=== PATIENT | female | born 1940 | race Caucasian/White ===

== ENCOUNTER 2017-03-13 16:35 | Inpatient (IN) | payer OTHER ==
[~2017-03-13] VITALS: Ht 304.8 cm; Wt 54.5 kg
[~2017-03-13 16:35] MED LIST: AMLO5TAB4 PO; ASPI-664 PO; ATEN100T PO; HYDR25TA6 PO; METF850T PO; [UNRECOGNIZED DRUG - REMARK]
[2017-03-13] MEDS ORDERED: ASPIRIN 81 MG TAB PO STA (16:39)
[2017-03-13] MEDS ORDERED: SOD CHLORIDE 0.9% 500 ML IV STA (16:39)
[2017-03-13 16:57] LABS: BASOPHILS % 0.5 % (0.0-2.0); EOSINOPHILS # 0.1 10^3/ul (0.0-0.5); EOSINOPHILS % 1.1 % (0.0-7.0); HEMATOCRIT 40.3 % (37.0-47.0); HEMOGLOBIN 13.9 g/dl (12.0-16.0); LYMPHOCYTES # 2.7 10^3/ul (0.8-2.9); LYMPHOCYTES % 33.2 % (15.0-51.0); MEAN CORPUSCULAR HEMOGLOBIN 32.4 pg (29.0-33.0); MEAN CORPUSCULAR HGB CONC 34.5 g/dl (32.0-37.0); MEAN CORPUSCULAR VOLUME 93.9 fl (82.0-101.0); MEAN PLATELET VOLUME 12.2 fl (7.4-10.4); MONOCYTE # 0.7 10^3/ul (0.3-0.9); MONOCYTES % 8.2 % (0.0-11.0); NEUTROPHILS % 56.6 % (39.0-77.0); PLATELET COUNT 166 10^3/UL (140-415); RED BLOOD COUNT 4.29 10^6/ul (4.20-5.40); RED CELL DISTRIBUTION WIDTH 13.4 % (11.5-14.5)
[2017-03-13] MEDS ORDERED: DILTIAZEM-D5W 125MG/125ML DRIP 125 ML IV SCH (17:00)
[2017-03-13] MEDS ORDERED: DILTIAZEM 25 MG INJ IV ONE (17:00)
--- NOTE | 2017-03-13 17:09 | ERA ---
ER Documentation Chief Complaint Date/Time DATE: 03/13/17 TIME: 17:04 Chief Complaint BROUGHT IN VIA EMS DUE TO CHEST PAIN FOR 3 DAYS HPI This 77-year-old female presents with 2-3 days of chest pain which got suddenly worse today. Chest pain is left-sided and substernal described as a pressure- like sensation with no radiation. She also had shortness of breath and dizziness. She was given 3 nitros in the ambulance in her chest pain resolved completely. ROS All systems reviewed and are negative except as per history of present illness. Medications Home Meds Reported Medications Insulin Lispro (Humalog Kwikpen U-100) 100 Unit/1 Ml Insuln.pen, 0 SQ SLIDING SCALE 03/13/17 Insulin Glargine* (Lantus*) 100 Unit/Ml Soln, 0 SC QHS, #1 VIAL TAKE 10-15 UNITS QHS 03/13/17 Alendronate Sodium* (Alendronate Sodium*) 35 Mg Tablet, 35 MG PO Q7D, #4 TAB 03/13/17 Omeprazole* (Omeprazole*) 20 Mg Capsule.dr, 20 MG PO DAILY, #30 CAP 03/13/17 Aspirin* (Aspirin* EC) 81 Mg Tablet.dr, 81 MG PO DAILY, TAB 12/14/14 Amlodipine Besylate* (Norvasc*) 5 Mg Tablet, 5 MG PO DAILY, TAB 12/14/14 Hydrochlorothiazide (Hydrochlorothiazide) 25 Mg Tablet, 25 MG PO DAILY, TAB 12/14/14 Atenolol* (Atenolol*) 100 Mg Tablet, 100 MG PO HS, TAB 12/14/14 Discontinued Reported Medications Metformin Hcl* (Metformin Hcl*) 850 Mg Tablet, 850 MG PO DAILY, TAB 12/14/14 [Insulin Unknown Dose] No Conflict Check 09/27/14 Allergies Allergies: Coded Allergies: No Known Allergy (Unverified , 03/13/17) PMhx/Soc History of Surgery: Yes (FOOT SX/EYE SX) Anesthesia Reaction: No Hx Neurological Disorder: No Hx Respiratory Disorders: No Hx Cardiac Disorders: Yes (HTN) Hx Psychiatric Problems: No Hx Miscellaneous Medical Probl: No (DM) Hx Alcohol Use: No Hx Substance Use: No Hx Tobacco Use: No Smoking Status: Never smoker Physical Exam Vitals Vital Signs Date Time Temp Pulse Resp B/P Pulse Ox O2 Delivery O2 Flow Rate FiO2 03/13/17 17:12 98.2 86 18 123/75 96 03/13/17 16:46 98.2 132 18 127/81 96 03/13/17 16:46 Nasal Cannula 2 Physical Exam Const: [] Mild distress Head: Atraumatic Eyes: Normal Conjunctiva ENT: Normal External Ears, Nose and Mouth. Neck: Full range of motion..~ No meningismus. Resp: Mlid decreased bibasilar breath sounds, mild tachypnea Cardio: Regular tachycardia, no murmurs Abd: Soft, non tender, non distended. Normal bowel sounds Skin: No petechiae or rashes Back: No midline or flank tenderness Ext: No cyanosis, trace pedal edema Neur: Awake and alert and oriented x 3, no focal deficits. Psych: Anxious Result Diagram: 03/13/17 1645 03/13/17 1645 Results 24 hrs Laboratory Tests Test 03/13/17 16:45 White Blood Count 8.010^3/ul Red Blood Count 4.2910^6/ul Hemoglobin 13.9g/dl Hematocrit 40.3% Mean Corpuscular Volume 93.9fl Mean Corpuscular Hemoglobin 32.4pg Mean Corpuscular Hemoglobin Concent 34.5g/dl Red Cell Distribution Width 13.4% Platelet Count 04851^3/UL Mean Platelet Volume 12.2fl Neutrophils % 56.6% Lymphocytes % 33.2% Monocytes % 8.2% Eosinophils % 1.1% Basophils % 0.5% Nucleated Red Blood Cells % 0.0/100WBC Neutrophils # (Manual) 4.510^3/ul Lymphocytes # 2.710^3/ul Monocytes # 0.710^3/ul Eosinophils # 0.110^3/ul Basophils # 0.010^3/ul Nucleated Red Blood Cells # 0.010^3/ul Prothrombin Time 13.6Sec Prothrombin Time Ratio 1.1 INR International Normalized Ratio 1.04 Activated Partial Thromboplast Time 25.3Sec Sodium Level 141mmol/L Potassium Level 4.1mmol/L Chloride Level 101mmol/L Carbon Dioxide Level 24mmol/L Anion Gap 20 Blood Urea Nitrogen 25mg/dl Creatinine 0.84mg/dl Glucose Level 142mg/dl Calcium Level 9.6mg/dl Troponin I < 0.012ng/ml B-Type Natriuretic Peptide 2420PG/ML Current Medications Medications (Trade) Dose Ordered Sig/Hai Route PRN Reason Start Time Stop Time Status Last Admin Dose Admin Sodium Chloride (NS) 500 ml @ 500 mls/hr Q1H STAT IV 03/13/17 16:39 03/13/17 17:38 DC 03/13/17 17:10 Aspirin (Aspirin) 162 mg ONCE STAT PO 03/13/17 16:39 03/13/17 16:43 DC 03/13/17 17:00 Diltiazem HCl 20 mg 20 mg ONCE ONCE IV 03/13/17 17:00 03/13/17 17:01 DC 03/13/17 17:10 Diltiazem HCl (Cardizem-D5W 125 Mg/125 ml Drip) 125 ml @ 5 mls/hr TITRATE IV 03/13/17 17:00 03/13/17 17:27 Procedures/MDM Chest pain with a flutter with RVR, very high heart rate. Chest pain was resolved with nitroglycerin. Patient was given a Cardizem bolus as well as Cardizem drip to control her dangerously high heart rate. We did feel better with rate control. To be need. She was admitted to the telemetry is a no longer believe she needs intensive care treatment. No. Panel Dr. Rodriguez is admitting. court recording monitor interpretation: Rapid a flutter followed by controlled a flutter. Chest x-ray interpretation: Engorgement of pulmonary vasculature without pulmonary edema, no infiltrates, no pneumothorax, no fractures Critical care time 31 minutes: This includes management of a flutter with concomitant chest pain, careful fluid administration, all visits patient's bedside to reassess status, treatment of unstable vital signs, chart reviewed, discussion with admitting doctor and patient. This does not include any billable procedures EKG interpretation: A flutter with 2-1 conduction rate of 133, left axis deviation, no ST or T-wave changes concerning for acute ischemia. Departure Diagnosis: Primary Impression: Chest pain Additional Impressions: Atrial flutter Tachycardia Condition: Serious GUADALUPEHERVE Mar 13, 2017 17:09
[2017-03-13 17:18] LABS: ANION GAP 20 (8-16); BLOOD UREA NITROGEN 25 mg/dl (7-20); CALCIUM 9.6 mg/dl (8.4-10.2); CARBON DIOXIDE 24 mmol/L (21-31); CHLORIDE 101 mmol/L (97-110); CREATININE 0.84 mg/dl (0.44-1.00); GLUCOSE 142 mg/dl (70-220); POTASSIUM 4.1 mmol/L (3.5-5.1); SODIUM 141 mmol/L (135-144)
[2017-03-13] MEDS ORDERED: ALEN35TA23 PO (17:29)
[2017-03-13] MEDS ORDERED: OMEP20CA16 PO (17:29)
[2017-03-13 17:30] LABS: INR 1.04; PARTIAL THROMBOPLASTIN TIME 25.3 Sec (25.0-35.0); PROTIME 13.6 Sec (12.2-14.2); PT RATIO 1.1
[2017-03-13] MEDS ORDERED: LANT3I SC (17:30)
[2017-03-13 17:31] LABS: B-TYPE NATRIURETIC PEPTIDE 2420 PG/ML (0-450)
[2017-03-13] MEDS ORDERED: INSU100I12 SQ (17:32)
[2017-03-13 17:38] LABS: TROPONIN-I < 0.012 ng/ml (0.00-0.12)
--- NOTE | 2017-03-13 17:38 | RADRPT ---
PROCEDURE: XR Chest. CLINICAL INDICATION: Chest Pain. TECHNIQUE: Single frontal view of the chest was obtained. COMPARISON: None. FINDINGS: The cardiomediastinal silhouette is mildly enlarged. Pulmonary vasculature is within normal limits. There is moderate aortic calcification.. No signs of pleural fluid or pneumothorax are seen. There is narrowing of the right humeral acromion distance, likely reflecting right rotator cuff tear. IMPRESSION: Mild cardiomegaly. Moderate aortic calcification. No visualized consolidation or edema. RPTAT: DD .Aníbal Sinclair MD, MD Date Time Electronically viewed and signed by .Aníbal Sinclair MD, MD on 03/13/2017 17:38 .T/
[2017-03-13] MEDS ORDERED: ONDANSETRON 4 MG INJ IV PRN (19:00)
[2017-03-13] MEDS ORDERED: ACETAMINOPHEN 325 MG TAB PO PRN (19:00)
[2017-03-13 21:45] VITALS: TEMP 97.9
[2017-03-13 22:29] LABS: ADD UMIC YES; UR ASCORBIC ACID NEGATIVE (NEGATIVE); UR BACTERIA FEW /HPF (NONE SEEN); UR BILIRUBIN (Dip) NEGATIVE (NEGATIVE); UR BLOOD (Dip) NEGATIVE (NEGATIVE); UR CLARITY CLEAR (CLEAR); UR COLOR STRAW (YELLOW); UR GLUCOSE (Dip) NEGATIVE (NEGATIVE); UR KETONES (Dip) NEGATIVE (NEGATIVE); UR LEUKOCYTE ESTERASE (Dip) 2+ Leu/ul (NEGATIVE); UR NITRITE (Dip) NEGATIVE (NEGATIVE); UR RBC 2 /HPF (0-5); UR SPECIFIC GRAVITY (Dip) 1.008 (1.003-1.030); UR SQUAMOUS EPITHELIAL CELL FEW /HPF (FEW); UR TOTAL PROTEIN (Dip) NEGATIVE (NEGATIVE); UR UROBILINOGEN (Dip) NEGATIVE (NEGATIVE)
[2017-03-13 22:53] VITALS: PULSE 66
[2017-03-13 23:00] VITALS: BP 120/80; PULSE 65; RESP 18
[2017-03-13 23:46] LABS: CREATINE KINASE 31 IU/L (23-200)
[2017-03-14] VITALS (15 sets, daily range): BP systolic 104–139; BP diastolic 58–92; PULSE 60–130; RESP 16–18; Ht 304.8 cm; Wt 54.5 kg
[2017-03-14] LABS: CK-MB 0.91 ng/ml (0.0-2.4)
[2017-03-14 00:02] LABS: TROPONIN-I < 0.012 ng/ml (0.00-0.12)
[2017-03-14] MEDS ORDERED: NACL 0.9% 3 ML SYG IV SCH (04:00)
[2017-03-14] MEDS ORDERED: ALBUTEROL/IPRATROPIUM (NEB) 3 ML AMP HHN PRN (04:00)
[2017-03-14] MEDS ORDERED: morphine 2 MG INJ IV PRN (04:00)
[2017-03-14] MEDS ORDERED: ONDANSETRON 4 MG INJ IV PRN (04:00)
[2017-03-14] MEDS ORDERED: NITROGLYCERIN (SL) 0.4 MG TAB SL PRN (04:00)
[2017-03-14] MEDS: PANTOPRAZOLE (EC) 40 MG TAB PO SCH (06:02)
--- NOTE | 2017-03-14 06:03 | HP ---
Date/Time of Note Date/Time of Note DATE: 03/14/17 TIME: 05:55 Assessment/Plan VTE Prophylaxis VTE Prophylaxis Intervention: heparin Lines/Catheters [facility] Saline Lock Urinary Cath still in place: No Assessment/Plan Assessment/Plan 1. A-flutter with RVR -Currently rate controlled after initiation of Cardizem drip -Continue home medication including her beta-abi and aspirin -Trend troponin -Check TSH and 2D echo in the morning -Cardiology consult 2. Chest pain, rule out ACS -Supplemental oxygen, aspirin, beta-abi, with as needed nitro morphine -Continue management of a-flutter -Trend troponin -2D echo and cardiology consult 3. Insulin-dependent diabetes -Check A1c -Adjust insulin as needed 4. Hypertension -Continue home BP meds with adjustment as needed HPI/ROS Admit Date/Time Admit Date/Time Mar 13, 2017 at 18:45 Hx of Present Illness This is a 77-year-old female with a history of hypertension, insulin-dependent diabetes and A-fib/flutter who presented to the emergency department complaining of chest pain 1 day. Pain is left-sided, pressure-like with radiation to her left arm with no associated shortness of breath, nausea/ vomiting or diaphoresis. Pain resolved with nitro given by EMS. When she presented to the ER she was found to be in 2-1 a-flutter with a rate of 133 on EKG. she was started on Cardizem drip and her rate has been controlled. First troponin is negative. . PMH/Family/Social Past Medical History Medical History: diabetes, hypertension, other (A flutter/A. fib) Social History Alcohol Use: none Smoking Status: Never smoker Drug Use: none Exam/Review of Systems Vital Signs Vitals Vital Signs Date Time Temp Pulse Resp B/P Pulse Ox O2 Delivery O2 Flow Rate FiO2 03/14/17 04:10 80 03/13/17 23:00 98.3 18 120/80 100 Room Air 03/13/17 16:46 2 Exam Constitutional: alert, oriented, well developed Head: atraumatic, normocephalic Eyes: EOMI, PERRL Respiratory: clear to auscultation, normal air movement Cardiovascular: irregular rhythm Gastrointestinal: non-tender, soft Extremities: normal pulses Labs Result Diagram: 03/13/17 1645 03/13/17 1645 Medications Medications Current Medications Diltiazem HCl (Cardizem-D5W 125 Mg/125 ml Drip) 125 ml @ 5 mls/hr TITRATE IV Last administered on 03/13/17t 17:27; Admin Dose 5 MLS/HR; Start 03/13/17 at 17: 00 Ondansetron HCl (Zofran Inj) 4 mg Q6H PRN IV NAUSEA AND/OR VOMITING; Start 03/14 at 04:00 Nitroglycerin (Nitroglycerin (Sl Tab) 0.4 Mg) 1 tab Q5M PRN SL CHEST PAIN; Start 03/14/17 at 04:00 Acetaminophen (Tylenol Tab) 650 mg Q6H PRN PO PAIN LEVEL 1-3 OR FEVER; Start at 04:00 Morphine Sulfate (morphine) 2 mg Q4H PRN IV PAIN LEVEL 7-10; Start 03/14/17 at 04:00 Enoxaparin Sodium (Lovenox) 40 mg DAILY SC ; Start 03/14/17 at 09:00 Amlodipine Besylate (Norvasc) 5 mg DAILY PO ; Start 03/14/17 at 09:00 Aspirin (Halfprin) 81 mg DAILY PO ; Start 03/14/17 at 09:00 Atenolol (Tenormin) 100 mg HS PO ; Start 03/14/17 at 21:00 Pantoprazole (Protonix Tab) 40 mg DAILY@06 PO ; Start 03/14/17 at 06:00 WESLEY LIMON MD Mar 14, 2017 06:02
[2017-03-14 06:10] LABS: BASOPHILS % 0.6 % (0.0-2.0); EOSINOPHILS # 0.1 10^3/ul (0.0-0.5); EOSINOPHILS % 1.4 % (0.0-7.0); HEMATOCRIT 38.1 % (37.0-47.0); HEMOGLOBIN 12.5 g/dl (12.0-16.0); LYMPHOCYTES # 2.3 10^3/ul (0.8-2.9); LYMPHOCYTES % 37.3 % (15.0-51.0); MEAN CORPUSCULAR HEMOGLOBIN 31.2 pg (29.0-33.0); MEAN CORPUSCULAR HGB CONC 32.8 g/dl (32.0-37.0); MEAN PLATELET VOLUME 12.6 fl (7.4-10.4); MONOCYTE # 0.6 10^3/ul (0.3-0.9); MONOCYTES % 9.4 % (0.0-11.0); PLATELET COUNT 142 10^3/UL (140-415); RED BLOOD COUNT 4.01 10^6/ul (4.20-5.40); RED CELL DISTRIBUTION WIDTH 13.7 % (11.5-14.5); WHITE BLOOD COUNT 6.3 10^3/ul (4.8-10.8)
[2017-03-14 06:56] LABS: CREATINE KINASE 31 IU/L (23-200)
[2017-03-14 06:58] LABS: CK-MB 1.04 ng/ml (0.0-2.4)
[2017-03-14 07:01] LABS: TROPONIN-I < 0.012 ng/ml (0.00-0.12)
[2017-03-14 07:13] LABS: ALBUMIN 3.5 g/dl (3.3-4.9); ALBUMIN/GLOBULIN RATIO 1.12; BILIRUBIN,INDIRECT 0.4 mg/dl (0-1.1); BILIRUBIN,TOTAL 0.4 mg/dl (0.2-1.3); CALCIUM 8.9 mg/dl (8.4-10.2); CHOL/HDL RATIO 4.4 RATIO; CREATININE 0.73 mg/dl (0.44-1.00); MAGNESIUM 1.7 mg/dl (1.7-2.5); POTASSIUM 4.2 mmol/L (3.5-5.1); TOTAL PROTEIN 6.6 g/dl (6.1-8.1)
[2017-03-14 08:08] LABS: THYROID STIMULATING HORMONE 0.556 MIU/L (0.465-4.680)
[2017-03-14] MEDS ORDERED: ENOXAPARIN 40 MG/0.4 ML SYG SC SCH (09:00)
[2017-03-14] MEDS ORDERED: GLUCOSE GEL 15 GRAM TUBE PO PRN ×2 (10:30)
[2017-03-14] MEDS ORDERED: GLUCOSE GEL 15 GRAM TUBE BUCCAL PRN (10:30)
[2017-03-14] MEDS ORDERED: GLUCAGON 1 MG INJ IM PRN (10:30)
[2017-03-14] MEDS ORDERED: DEXTROSE 50% 50 ML SYRINGE IV PRN ×2 (10:30)
[2017-03-14] MEDS: INSULIN ASPART [NOVOLOG] 3 ML PEN SC SCH ×5 (11:45→21:00)
[2017-03-14] MEDS: ACETAMINOPHEN 325 MG TAB PO PRN (12:58)
[2017-03-14] MEDS: ASPIRIN (EC) 81 MG TAB PO SCH (13:01)
[2017-03-14] MEDS: AMLODIPINE 5 MG TAB PO SCH (13:01)
[2017-03-14] MEDS: INSULIN GLARGINE [LANtus] 3 ML PEN SC SCH (13:08)
[2017-03-14] MEDS ORDERED: METOPROLOL 5 MG INJ IV PRN (18:30)
--- NOTE | 2017-03-14 19:23 | RADRPT ---
Echocardiogram Report Patient Name: MILES WISEMAN Gender: Female Date: 1940 Study Date: 14-Mar-2017 Room Service Attendant: Naveen Bahena RUST Location: [facility] Ref. Physician: WESLEY LIMON Quality: Adequate Procedures: Transthoracic echocardiogram with complete 2D, M-Mode, and doppler examination. Indications: Atrial Fibrillation. 2D/M Mode Doppler Measurement Value Normal Ranges Measurement Value Normal Ranges LVIDd 2D 4.2 3.5 - 5.6 cm AV Peak Vinayak 0.9 m/sec LVIDs 2D 3.5 2.1 - 4.1 cm AV Peak PG 3.0 mmHg FS 2D 16.1 % LVOT Peak Vinayak 0.5 m/sec LVPWd 2D 1.3 0.6 - 1.1 cm LVOT Peak PG 1.0 mmHg IVSd 2D 1.3 0.6 - 1.1 cm MV E Peak Vinayak 1.2 m/sec IVS/LVPW 2D 1.0 MR Peak PG 84.0 mmHg AoR Diam 2D 2.5 2.0 - 3.7 cm MR Peak Vinayak 4.6 m/sec LA/Ao 2D 1 0 - 1 TR Peak Vinayak 2.8 m/sec EDV 2D 75.7 cm3 TR Peak PG 31.0 mmHg ESV 2D 44.7 cm3 RVSP 34.0 mmHg LA Dimen 2D 3.7 2.3 - 4.0 cm Findings Left Ventricle: Normal left ventricular cavity size. Moderate concentric left ventricular hypertrophy. Mild global left ventricular systolic dysfunction. Ejection fraction is visually estimated at 40 %. Tissue Doppler/Mitral Doppler indices are indeterminate in this study due to the presence of atrial fibrillation. Right Ventricle: Normal right ventricular systolic function. Mild enlargement of right ventricle. Left Atrium: The left atrium is normal in size. Right Atrium: The right atrium is normal in size. Mitral Valve: Mitral valve leaflets appear mildly thickened. Mild mitral annular calcification. Moderate mitral valve regurgitation. Aortic Valve: Trace aortic valve regurgitation. Tricuspid Valve: Normal appearance of the tricuspid valve. Estimated peak PA systolic pressure 34 mmHg. There is mild to moderate tricuspid regurgitation. Pulmonic Valve: Pulmonic valve not well visualized. There is trace pulmonic regurgitation. Pericardium: Normal pericardium with no significant pericardial effusion. Aorta: Normal aortic root. IVC: Normal size and normal respiratory collapse consistent with normal right atrial pressure. Conclusions 1.Normal left ventricular cavity size. Moderate concentric left ventricular hypertrophy. Mild global left ventricular systolic dysfunction. Ejection fraction is visually estimated at 40 %. Tissue Doppler/Mitral Doppler indices are indeterminate in this study due to the presence of atrial fibrillation. 2.Normal right ventricular systolic function. Mild enlargement of right ventricle. 3.Mitral valve leaflets appear mildly thickened. Mild mitral annular calcification. Moderate mitral valve regurgitation. 4.Trace aortic valve regurgitation. 5.Normal appearance of the tricuspid valve. Estimated peak PA systolic pressure 34 mmHg. There is mild to moderate tricuspid regurgitation. 6.Pulmonic valve not well visualized. There is trace pulmonic regurgitation. Electronically Signed By: Ellis Fontenot 14-Mar-2017 19:22:35 -0700 Patient Name: MILES WISEMAN Study Date: 14-Mar-2017 [id number]
[2017-03-14] MEDS: DIGOXIN 500 MCG INJ IV SCH ×2 (19:32→23:20)
[2017-03-14] MEDS ORDERED: ATENOLOL 100 MG TAB PO SCH (21:00)
[2017-03-14] MEDS: ATENOLOL 50 MG TAB PO SCH (21:50)
[2017-03-14] MEDS: ENOXAPARIN 60 MG/0.6 ML SYG SC SCH (23:25)
[2017-03-15] VITALS (10 sets, daily range): BP systolic 124–143; BP diastolic 62–91; PULSE 81–129; RESP 19–20
--- NOTE | 2017-03-15 00:12 | CONS ---
DATE OF ADMISSION: 03/13/2017 DATE OF CONSULTATION: 03/14/2017 REASON FOR CONSULTATION: Atrial flutter with rapid ventricular response, as well as chest pain, assess acute coronary syndrome. REQUESTING PHYSICIAN: Dr. Aguilar from the hospitalist service. HISTORY OF PRESENT ILLNESS: Ms. Melendez is a 77-year-old female with a history of hypertension, dyslipidemia, diabetes mellitus, who presented with complaints of palpitations and associated substernal chest pain described as a pressure-like sensation, occurring at rest, with some radiation to left arm and mild shortness of breath, with onset on the day of admission. Initially upon arrival, temperature 98.2, blood pressure 127/81, pulse of 132, respirations 18, O2 96 percent. Patient's labs with a white count 8.0, hemoglobin 13.9, platelet count of 166. Sodium 141, potassium 4.1, creatinine 0.8, BUN 25. Troponin negative. BNP of 2420. INR 1.0. UA positive. The patient underwent a chest x-ray revealing mild cardiomegaly, moderate aortic calcification. The patient's electrocardiogram revealed atrial flutter at a rate of 133, left axis deviation, nonspecific ST-T wave abnormalities diffusely. The patient subsequently has been initiated on a diltiazem drip and has been admitted to the floor. On diltiazem drip, patient currently has good rate control in the 80s and stable blood pressure. The patient states chest pain has improved. PAST MEDICAL HISTORY: As above in HPI. MEDICATION: Currently in the hospital: 1. Atenolol 100 mg at bedtime. 2. Norvasc 5 mg daily. 3. Aspirin 81 mg daily. 4. Lovenox 4 mg subcu daily. 5. Insulin sliding scale. ALLERGIES: NO KNOWN DRUG ALLERGIES. SOCIAL HISTORY: No tobacco, EtOH or illicit drug use. FAMILY HISTORY: No history of sudden cardiac or early CAD. REVIEW OF SYSTEMS: As above in HPI. CONSTITUTIONAL: No fevers or chills. RESPIRATORY: Shortness of breath. CARDIOVASCULAR: Positive for chest pain, atrial flutter. GASTROINTESTINAL: No vomiting. GENITOURINARY: No hematuria. MUSCULOSKELETAL: Degenerative joint disease. PSYCHIATRIC: No documented psych history. NEUROLOGIC: No documented CVA. PHYSICAL EXAMINATION: VITAL SIGNS: Temperature of 97.9, blood pressure most recently 104/58, pulse , respiratory rate 16, satting 96 percent. GENERAL: The patient is alert, awake, no acute distress. NECK: JVP approximately 8 cm of water. CHEST: Fair air movement throughout with mildly decreased breath sounds at the bases bilaterally. HEART: Regular irregular, 1/6 systolic murmur. Nondisplaced PMI. ABDOMEN: Positive bowel sounds. Soft. EXTREMITIES: No pitting edema. 1+ pulses bilateral posterior tibial. LABORATORY: As above in HPI with most recently from today: Troponin negative times a total of 3. White blood cell count 6.3, hemoglobin 12.5, platelet count 142. Sodium of 141, potassium 4.2, creatinine 0.7, BUN 20, glucose of 258. LDL 96, HDL 34. TSH 0.56, within normal limits. IMAGING STUDIES: As above in HPI. No further imaging studies were reviewed at this time. ELECTROCARDIOGRAM: As above in HPI. No further electrocardiograms were reviewed at this time. IMPRESSION: 1. Atrial flutter with rapid ventricular response, currently improved on diltiazem drip. 2. Chest pain. Assess for acute coronary syndrome. 3. Dyslipidemia with low HDL. 4. Hypertension with currently borderline hypotension. 5. Diabetes mellitus with uncontrolled blood sugars. 6. Urinary tract infection. RECOMMENDATIONS: 1. At this time, would maintain patient on telemetry monitoring to follow rhythm and rates closely. 2. Would wean the patient's diltiazem drip as tolerated after giving atenolol and schedule this evening, but given patient's borderline blood pressure, we will take atenolol and split it into half dose in the morning and half dose in the evening and we will give additional digoxin load to improve overall heart rate acutely. 3. Once the patient has been weaned off diltiazem by giving digoxin and beta abi with an attempt to keep the heart rate 110 or less, would then use intravenous push p.r.n. beta abi as necessary to maintain heart rate control while further titration of oral medications are given. 4. Would initiate patient on systemic anticoagulation for prevention of thromboembolic events in the setting of ablation, elevated CHADS score placing her at increased risk for thromboembolic complications, atrial fibrillation, atrial flutter and benefit from systemic anticoagulation if possible. 5. Complete the rule out myocardial infarction to ensure the patient's chest pain was not due to acute coronary syndrome, such as acute myocardial infarction provoked in the setting of rapid atrial flutter. 6. We will follow patient's 2D echo for assessment of ejection fraction, wall motion, any major abnormalities. 7. Would consider stress testing to further assess for the possibility of a significant obstructive artery disease or thereafter ischemic lesions leading any to the patient's chest pain. Thank you for allowing me to take part in the care of this patient. I will continue to follow her very closely with you with further recommendations to be made as patient progresses through her inpatient hospital course. Dictated By: Ellis Fontenot MD /marielena/ijeoma /Document#: [id number] ; Dr. Campo
[2017-03-15] MEDS: ACCU-CHEK XX SCH (01:03)
[2017-03-15] MEDS ORDERED: ACCU-CHEK XX SCH (02:00)
[2017-03-15] MEDS: PANTOPRAZOLE (EC) 40 MG TAB PO SCH (06:23)
[2017-03-15 07:46] LABS: BASOPHILS % 0.4 % (0.0-2.0); EOSINOPHILS % 0.3 % (0.0-7.0); HEMATOCRIT 41.9 % (37.0-47.0); LYMPHOCYTES # 1.3 10^3/ul (0.8-2.9); LYMPHOCYTES % 13.8 % (15.0-51.0); MEAN CORPUSCULAR HEMOGLOBIN 31.7 pg (29.0-33.0); MEAN CORPUSCULAR HGB CONC 33.4 g/dl (32.0-37.0); MEAN CORPUSCULAR VOLUME 94.8 fl (82.0-101.0); MEAN PLATELET VOLUME 12.6 fl (7.4-10.4); MONOCYTE # 0.5 10^3/ul (0.3-0.9); MONOCYTES % 5.5 % (0.0-11.0); NEUTROPHILS % 79.5 % (39.0-77.0); PLATELET COUNT 161 10^3/UL (140-415); RED BLOOD COUNT 4.42 10^6/ul (4.20-5.40); RED CELL DISTRIBUTION WIDTH 13.6 % (11.5-14.5); WHITE BLOOD COUNT 9.1 10^3/ul (4.8-10.8)
[2017-03-15] MEDS: INSULIN ASPART [NOVOLOG] 3 ML PEN SC SCH ×7 (08:00→21:00)
[2017-03-15 08:14] LABS: CALCIUM 9.3 mg/dl (8.4-10.2); CREATININE 0.74 mg/dl (0.44-1.00); MAGNESIUM 1.9 mg/dl (1.7-2.5); PHOSPHORUS 3.8 mg/dl (2.5-4.9); POTASSIUM 4.2 mmol/L (3.5-5.1)
--- NOTE | 2017-03-15 09:40 | RADRPT ---
Vent Rate: 130 bpm RR Interval: 0 msec DC Interval: 198 msec QRS Duration: 108 msec QT Interval: 254 msec QTC Interval: 373 msec P-R-T Arnold: 58 - 34 - 173 degrees Sinus tachycardia Possible Left atrial enlargement ST amp; T wave abnormality, consider inferior ischemia Abnormal ECG Electronically Signed By: Maverick Rincon [id number]
[2017-03-15] MEDS: ASPIRIN (EC) 81 MG TAB PO SCH (09:48)
[2017-03-15] MEDS: ATENOLOL 50 MG TAB PO SCH ×2 (09:48→20:54)
[2017-03-15] MEDS: AMLODIPINE 5 MG TAB PO SCH (09:48)
[2017-03-15] MEDS ORDERED: REGADENOSON 0.4 MG/5 ML SYG ONE (10:04)
[2017-03-15] MEDS: ENOXAPARIN 60 MG/0.6 ML SYG SC SCH ×2 (12:45→20:58)
--- NOTE | 2017-03-15 15:08 | PN ---
Date/Time of Note Date/Time of Note DATE: 03/15/17 TIME: 15:04 Assessment/Plan VTE Prophylaxis VTE Prophylaxis Intervention: LMWH Lines/Catheters IV [facility]from [facility] Saline Lock Urinary Cath still in place: No Assessment/Plan Chief Complaint/Hosp Course 1. A-flutter with RVR -Currently rate controlled with atenolol -TSH normal and 2D echo shows EF of 40% -Cardiology consult appreciated -Continue Lovenox 2. Chest pain, rule out ACS -Supplemental oxygen, aspirin, beta-abi, with as needed nitro morphine -Continue management of a-flutter -Trops are negative 3 -Nuclear stress test today 3. Insulin-dependent diabetes -A1c 9.8 -Adjust insulin as needed 4. Hypertension -Continue home BP meds with adjustment as needed Prophylaxis: Lovenox Problems: Subjective 24 Hr Interval Summary Constitutional: no complaints Exam/Review of Systems Vital Signs Vitals Vital Signs Date Time Temp Pulse Resp B/P Pulse Ox O2 Delivery O2 Flow Rate FiO2 03/15/17 08:16 105 03/15/17 07:33 98.5 19 124/62 98 03/14/17 18:53 Room Air 03/13/17 16:46 2 Exam Constitutional: alert Respiratory: clear to auscultation Cardiovascular: irregular rhythm Gastrointestinal: soft, No distended Musculoskeletal: nl extremities to inspection Results Result Diagram: 03/15/17 0724 03/15/17 0724 Results 24 hrs Laboratory Tests Test 03/14/17 17:43 03/14/17 21:41 03/15/17 07:24 03/15/17 08:06 Bedside Glucose 258 H 134 248 H White Blood Count 9.1 # Red Blood Count 4.42 Hemoglobin 14.0 Hematocrit 41.9 Mean Corpuscular Volume 94.8 Mean Corpuscular Hemoglobin 31.7 Mean Corpuscular Hemoglobin Concent 33.4 Red Cell Distribution Width 13.6 Platelet Count 161 Mean Platelet Volume 12.6 H Neutrophils % 79.5 H Lymphocytes % 13.8 L Monocytes % 5.5 Eosinophils % 0.3 Basophils % 0.4 Nucleated Red Blood Cells % 0.0 Neutrophils # (Manual) 7.2 Lymphocytes # 1.3 Monocytes # 0.5 Eosinophils # 0.0 Basophils # 0.0 Nucleated Red Blood Cells # 0.0 Sodium Level 138 Potassium Level 4.2 Chloride Level 102 Carbon Dioxide Level 26 Anion Gap 14 Blood Urea Nitrogen 17 Creatinine 0.74 Glucose Level 283 #H Calcium Level 9.3 Phosphorus Level 3.8 Magnesium Level 1.9 Test 03/15/17 12:25 Bedside Glucose 184 Medications Medications Current Medications Diltiazem HCl (Cardizem-D5W 125 Mg/125 ml Drip) 125 ml @ 5 mls/hr TITRATE IV Last administered on 03/13/17 17:27; Admin Dose 5 MLS/HR; Start 03/13/17 at 17: 00 Ondansetron HCl (Zofran Inj) 4 mg Q6H PRN IV NAUSEA AND/OR VOMITING; Start 03/14 at 04:00 Nitroglycerin (Nitroglycerin (Sl Tab) 0.4 Mg) 1 tab Q5M PRN SL CHEST PAIN; Start 03/14/17 at 04:00 Acetaminophen (Tylenol Tab) 650 mg Q6H PRN PO PAIN LEVEL 1-3 OR FEVER Last administered on 03/14/17 12:58; Admin Dose 650 MG; Start 03/14/17 at 04:00 Morphine Sulfate (morphine) 2 mg Q4H PRN IV PAIN LEVEL 7-10; Start 03/14/17 at 04:00 Amlodipine Besylate (Norvasc) 5 mg DAILY PO Last administered on 03/15/17 09:48 ; Admin Dose 5 MG; Start 03/14/17 at 09:00 Aspirin (Halfprin) 81 mg DAILY PO Last administered on 03/15/17 09:48; Admin Dose 81 MG; Start 03/14/17 at 09:00 Pantoprazole (Protonix Tab) 40 mg DAILY@06 PO Last administered on 03/15/17 06: 23; Admin Dose 40 MG; Start 03/14/17 at 06:00 Diagnostic Test (Pha) (Accu-Chek) 1 ea 02 XX ; Start 03/15/17 at 02:00 Insulin Glargine (Lantus) 11 unit DAILY@08 SC Last administered on 03/14/17 13: 08; Admin Dose 11 UNIT; Start 03/15/17 at 08:00 Miscellaneous Information 1 ea NOTE XX ; Start 03/14/17 at 10:30 Glucose (Glutose) 15 gm Q15M PRN PO DECREASED GLUCOSE; Start 03/14/17 at 10:30 Glucose (Glutose) 22.5 gm Q15M PRN PO DECREASED GLUCOSE; Start 03/14/17 at 10:30 Dextrose (D50w Syringe) 25 ml Q15M PRN IV DECREASED GLUCOSE; Start 03/14/17 at 10:30 Dextrose (D50w Syringe) 50 ml Q15M PRN IV DECREASED GLUCOSE; Start 03/14/17 at 10:30 Glucagon (Glucagen) 1 mg Q15M PRN IM DECREASED GLUCOSE; Start 03/14/17 at 10:30 Glucose (Glutose) 15 gm Q15M PRN BUCCAL DECREASED GLUCOSE; Start 03/14/17 at 10: 30 Atenolol (Tenormin) 50 mg BID PO Last administered on 03/15/17 09:48; Admin Dose 50 MG; Start 03/14/17 at 21:00 Enoxaparin Sodium (Lovenox) 50 mg BID SC Last administered on 03/15/17 12:45; Admin Dose 50 MG; Start 03/14/17 at 23:00 Metoprolol Tartrate (Lopressor) 5 mg Q4H PRN IV HR>110 Hold SBP<100 Last administered on 03/15/17 10:21; Admin Dose 5 MG; Start 03/14/17 at 18:30 MCKENNA RODRIGUES Mar 15, 2017 15:08
--- NOTE | 2017-03-15 16:39 | RADRPT ---
PROCEDURE: Lexiscan myocardial perfusion study CLINICAL INDICATION: 77 -year-old patient complaining of chest pain. TECHNIQUE: Lexiscan 0.4 mg intravenously separate acquisition gated myocardial perfusion SPECT usi ng Tc 99m Myoview 30.0 mCi intravenously at stress and Tc-99m Myoview, 10.0 mCi intravenously at res t was performed using the rest/stress sequence. Poststress Myoview SPECT images were obtained in th e supine position. COMPARISON: No prior studies. FINDINGS: Perfusion images reveal mild nonreversible perfusion abnormality in the inferior wall. Lexiscan post stress gated SPECT images demonstrate mild hypokinesis of the left ventricle. IMPRESSION: 1. No evidence of stress-induced ischemia. 2. Mild hypokinesis of the left ventricle. 3. The left ventricle ejection fraction at stress is 36%. RPTAT: HH .Veronica Navarro MD, Date Time Electronically viewed and signed by .Veronica Navarro MD, on 03/15/2017 16:39 .L/
[2017-03-15] MEDS: ACETAMINOPHEN 325 MG TAB PO PRN (22:54)
[2017-03-16] VITALS (8 sets, daily range): BP systolic 115–140; BP diastolic 65–88; PULSE 66–132; RESP 17–20
[2017-03-16] MEDS: ACCU-CHEK XX SCH (02:00)
[2017-03-16] MEDS: PANTOPRAZOLE (EC) 40 MG TAB PO SCH (06:12)
[2017-03-16 08:03] LABS: CALCIUM 8.9 mg/dl (8.4-10.2); CREATININE 0.81 mg/dl (0.44-1.00); MAGNESIUM 1.8 mg/dl (1.7-2.5); POTASSIUM 4.2 mmol/L (3.5-5.1)
[2017-03-16] MEDS: ASPIRIN (EC) 81 MG TAB PO SCH (08:10)
[2017-03-16] MEDS: ATENOLOL 50 MG TAB PO SCH (08:11)
[2017-03-16] MEDS: AMLODIPINE 5 MG TAB PO SCH (08:11)
[2017-03-16] MEDS: INSULIN ASPART [NOVOLOG] 3 ML PEN SC SCH ×4 (08:12→12:24)
[2017-03-16] MEDS: ENOXAPARIN 60 MG/0.6 ML SYG SC SCH (08:12)
[2017-03-16] MEDS: INSULIN GLARGINE [LANtus] 3 ML PEN SC SCH (08:14)
[2017-03-16] MEDS ORDERED: APIX2.5T PO (14:02)
[2017-03-16] MEDS ORDERED: ATEN50TA PO (14:02)
--- NOTE | 2017-03-16 14:03 | PDOCDIS ---
Discharge Instructions CONDITION Patient Condition: Good HOME CARE INSTRUCTIONS: Special Diet: carb control ACTIVITY: Activity Restrictions: No Restrictions FOLLOW UP/APPOINTMENTS Follow-up Plan F/U WITH YOUR PCP IN 1-2 WEEKS MCKENNA RODRIGUES Mar 16, 2017 14:03
--- NOTE | 2017-03-16 18:21 | DS ---
Date/Time of Note Date/Time of Note DATE: 03/16/17 TIME: 18:16 Discharge Summary Admission/Discharge Info Admit Date/Time Mar 13, 2017 at 18:45 Discharge Date/Time Mar 16, 2017 at 15:11 Discharge Diagnosis 1. A-flutter with RVR-now stable -Currently rate controlled with atenolol, home dose change to 50 twice daily -TSH normal and 2D echo shows EF of 40% -Cardiology consult appreciated -DC with Eliquis 2. Chest pain due to palpitations from a flutter, rule out ACS -Trops are negative 3 -Nuclear stress test negative 3. Insulin-dependent diabetes -A1c 9.8, dietary changes were advised, to follow with PCP 4. Hypertension -Continue home BP meds Patient Condition: Good Hospital Course Patient is a 77-year-old female with a history of hypertension, insulin- dependent diabetes and A-fib/flutter who presented to the emergency department complaining of chest pain 1 day. ACS was ruled out with negative troponins and negative nuclear stress test. Pain was likely secondary to palpitations from a flutter with rapid ventricular response. Patient's home atenolol was changed to 50 twice daily was started on Lovenox. The patient's heart rate was stable and she was chest pain-free on the day of discharge. On the day of discharge patient's vitals, labs and physical exam are stable, she had no further acute complaints and questions were answered. She was instructed on her change of medications to atenolol 50 twice daily and reason for the initiation of Eliquis. . Home Meds Active Scripts Apixaban* (Eliquis*) 2.5 Mg Tablet, 2.5 MG PO BID, #60 TAB 2 Refills Prov:MCKENNA RODRIGUES 03/16/17 Atenolol* (Atenolol*) 50 Mg Tablet, 50 MG PO BID, #60 TAB 1 Refill Prov:MCKENNA RODRIGUES 03/16/17 Reported Medications Insulin Lispro (Humalog Kwikpen U-100) 100 Unit/1 Ml Insuln.pen, 0 SQ SLIDING SCALE 03/13/17 Insulin Glargine* (Lantus*) 100 Unit/Ml Soln, 0 SC QHS, #1 VIAL TAKE 10-15 UNITS QHS 03/13/17 Alendronate Sodium* (Alendronate Sodium*) 35 Mg Tablet, 35 MG PO Q7D, #4 TAB 03/13/17 Omeprazole* (Omeprazole*) 20 Mg Capsule.dr, 20 MG PO DAILY, #30 CAP 03/13/17 Amlodipine Besylate* (Norvasc*) 5 Mg Tablet, 5 MG PO DAILY, TAB 12/14/14 Hydrochlorothiazide (Hydrochlorothiazide) 25 Mg Tablet, 25 MG PO DAILY, TAB 12/14/14 Discontinued Reported Medications Aspirin* (Aspirin* EC) 81 Mg Tablet.dr, 81 MG PO DAILY, TAB 12/14/14 Atenolol* (Atenolol*) 100 Mg Tablet, 100 MG PO HS, TAB 12/14/14 Metformin Hcl* (Metformin Hcl*) 850 Mg Tablet, 850 MG PO DAILY, TAB 12/14/14 [Insulin Unknown Dose] No Conflict Check 09/27/14 Follow-up Plan Follow up with PCP and labor mediator in 1-2 weeks Primary Care Provider Sam Busby MD Time spent on discharge: > 30 minutes MCKENNA RODRIGUES Mar 16, 2017 18:21
--- NOTE | 2017-03-19 03:26 | CARRPT ---
DATE OF PROCEDURE: 03/18/2017 TYPE OF PROCEDURE: Lexiscan Cardiolite stress test. REASON FOR STRESS TESTING: Chest pain, assess for ischemia. BASELINE VITAL SIGNS: Pulse of 90, blood pressure 144/88. Electrocardiogram reveals atrial flutter, rate of 90, variable block, normal axis and nonspecific ST-T wave abnormalities diffusely. PROCEDURE: The patient underwent standard Lexiscan infusion protocol for 10 seconds followed by uptake of radiotracer. The patient's test was stopped due to completion of protocol. Maximal achieved blood pressure during test of 138/84. Maximum achieved heart rate during test 131. ELECTROCARDIOGRAM FINDINGS: Patient did not develop any new Lexiscan induced ST-T wave changes from baseline abnormalities. Occasional PVCs. SYMPTOMS: Patient had complaints of a headache. No chest pain. No shortness of breath during stress testing. IMPRESSION: 1. No Lexiscan-induced ST-T wave changes from baseline abnormalities for diagnostic ischemia. 2. No complaints of chest pain or shortness of breath during stress test. 3. Occasional premature ventricular contractions during stress testing. 4. Report of nuclear images to follow in a separate dictation. Dictated By: Ellis Fontenot MD /marielena/ijeoma /Document#: [id number] CC: Nunu Rodriguez MD;*[facility]*
== END 2017-03-16 15:11 | disposition home or self-care (01) | DRG 309 ==
LOC: E/R 16:35 → UNDOADMIN 18:45 → MS3 18:45 → MS4 03-14 22:20
PROVIDERS: ADMIT Internal Medicine; ATTEND Internal Medicine
DX: I48.4 Atypical atrial flutter (principal); N39.0 Urinary tract infection, site not specified; E11.65 Type 2 diabetes mellitus with hyperglycemia; I10 Essential (primary) hypertension; E78.5 Hyperlipidemia, unspecified; I48.2 Chronic atrial fibrillation; Z79.02 Long term (current) use of antithrombotics/antiplatelets; Z79.82 Long term (current) use of aspirin; Z79.4 Long term (current) use of insulin
CPT/HCPCS: 71010; 78452; 80048; 80053; 80061; 81001; 82550; 82553; 82962; 83036; 83735; 83880; 84100; 84443; 84484; 85025; 85610; 85730; 93005; 93017; 93306; 96365; 96366; 96375; A9500; A9505; J1650; J1815; J2785; J7040

== ENCOUNTER 2017-05-30 17:21 | Inpatient (IN) | payer OTHER ==
[~2017-05-30] VITALS: Ht 167.6 cm; Wt 62.4 kg
[~2017-05-30 17:21] MED LIST changes: +ALEN35TA23 PO; +APIX2.5T PO; -ASPI-664 PO; -ATEN100T PO; +ATEN50TA PO; +INSU100I12 SQ; +LANT3I SC; -METF850T PO; +OMEP20CA16 PO; -[UNRECOGNIZED DRUG - REMARK]
[2017-05-30] MEDS ORDERED: SOD CHLORIDE 0.9% 500 ML IV STA (17:36)
--- NOTE | 2017-05-30 17:36 | ERD ---
ER Documentation Chief Complaint Chief Complaint Palpitations ANTWAN Is a 77-year-old female with a past medical history of hypertension, diabetes, GERD, palpitations on Xarelto who is presenting with palpitations today. She went to her primary care doctor's office who got a EKG. There is concern that she was in atrial flutter, so she was sent here for further evaluation. The patient does endorse mild palpitations at this time, but she otherwise feels well. The patient denies feeling sick recently. The patient denies fever or chills. The patient has had no headache or vision changes. The patient does not endorse neck or back pain. The patient denies lightheadedness or dizziness. The patient has had no chest pain or shortness of breath or trouble breathing. The patient denies nausea or vomiting. The patient denies abdominal pain or changes to bowel movements or urination. The patient has had no focal deficits. The patient has had no weakness or numbness or tingling to the face or extremities. ROS All systems reviewed and are negative except as per history of present illness. Medications Home Meds Active Scripts Apixaban* (Eliquis*) 2.5 Mg Tablet, 2.5 MG PO BID, #60 TAB 2 Refills Prov:RAVIMCKENNA 03/16/17 Atenolol* (Atenolol*) 50 Mg Tablet, 50 MG PO BID, #60 TAB 1 Refill Prov:RAVIMCKENNA 03/16/17 Reported Medications Insulin Lispro (Humalog Kwikpen U-100) 100 Unit/1 Ml Insuln.pen, 0 SQ SLIDING SCALE 03/13/17 Insulin Glargine* (Lantus*) 100 Unit/Ml Soln, 7 UNIT SC QHS, #1 VIAL TAKE 10-15 UNITS QHS 03/13/17 Omeprazole* (Omeprazole*) 20 Mg Capsule.dr, 20 MG PO DAILY, #30 CAP 03/13/17 Amlodipine Besylate* (Norvasc*) 5 Mg Tablet, 5 MG PO DAILY, TAB 12/14/14 Hydrochlorothiazide (Hydrochlorothiazide) 25 Mg Tablet, 25 MG PO DAILY, TAB 12/14/14 Discontinued Reported Medications Alendronate Sodium* (Alendronate Sodium*) 35 Mg Tablet, 35 MG PO Q7D, #4 TAB 8/31/17 Allergies Allergies: Coded Allergies: No Known Allergy (Unverified , 05/30/17) PMhx/Soc History of Surgery: No Anesthesia Reaction: No Hx Neurological Disorder: No Hx Respiratory Disorders: No Hx Cardiac Disorders: Yes (HTN, DM, Palpitations) Hx Psychiatric Problems: No Hx Miscellaneous Medical Probl: Yes (GERD) Hx Alcohol Use: No Hx Substance Use: No Hx Tobacco Use: No FmHx Family History: diabetes Physical Exam Vitals Vital Signs Date Time Temp Pulse Resp B/P Pulse Ox O2 Delivery O2 Flow Rate FiO2 05/30/17 20:30 98.0 72 20 113/69 98 Room Air 05/30/17 19:30 98.0 88 16 116/83 94 Room Air 05/30/17 18:35 98.0 89 18 130/87 97 Room Air 05/30/17 17:43 98.0 132 18 145/98 99 05/30/17 17:40 Nasal Cannula Physical Exam Const: No apparent distress, well-developed, well-nourished Head: Normocephalic, Atraumatic Eyes: Normal Conjunctiva. Extraocular movements intact. Pupils equal, round and reactive to light ENT: Normal External Ears, Nose and Mouth. Neck: Full range of motion. No meningismus. Resp: Clear to auscultation bilaterally, No wheezes, rales or rhonchi Cardio: Regular rhythm. Tachycardia. no murmurs, rubs or gallops Abd: Soft, non tender, non distended. Normal bowel sounds Skin: No petechiae or rashes Back: No midline tenderness. No CVA tenderness Ext: No cyanosis, or edema Neur: Awake and alert, oriented 4. Cranial nerves intact. No facial droop. Normal strength, sensation and coordination. Psych: Normal Mood and Affect Result Diagram: 05/31/17 0647 05/31/17 0647 Results 24 hrs Laboratory Tests Test 05/30/17 18:00 White Blood Count 6.310^3/ul Red Blood Count 4.7310^6/ul Hemoglobin 14.8g/dl Hematocrit 45.7% Mean Corpuscular Volume 96.6fl Mean Corpuscular Hemoglobin 31.3pg Mean Corpuscular Hemoglobin Concent 32.4g/dl Red Cell Distribution Width 13.4% Platelet Count 94570^3/UL Mean Platelet Volume 12.4fl Neutrophils % 56.0% Lymphocytes % 33.9% Monocytes % 7.8% Eosinophils % 1.4% Basophils % 0.6% Nucleated Red Blood Cells % 0.0/100WBC Neutrophils # 3.510^3/ul Lymphocytes # 2.110^3/ul Monocytes # 0.510^3/ul Eosinophils # 0.110^3/ul Basophils # 0.010^3/ul Nucleated Red Blood Cells # 0.010^3/ul Sodium Level 145mmol/L Potassium Level 4.4mmol/L Chloride Level 104mmol/L Carbon Dioxide Level 25mmol/L Anion Gap 20 Blood Urea Nitrogen 17mg/dl Creatinine 0.77mg/dl Glucose Level 165mg/dl Calcium Level 9.6mg/dl Troponin I < 0.012ng/ml Current Medications Medications (Trade) Dose Ordered Sig/Hai Route PRN Reason Start Time Stop Time Status Last Admin Dose Admin Sodium Chloride (NS) 500 ml @ 500 mls/hr Q1H STAT IV 05/30/17 17:36 05/30/17 18:35 DC 05/30/17 18:01 Diltiazem HCl 5 mg 5 mg ONCE ONCE IV 05/30/17 18:00 05/30/17 18:01 DC 05/30/17 17:45 Diltiazem HCl (Cardizem-D5W 125 Mg/125 ml Drip) 125 ml @ 5 mls/hr TITRATE IV 05/30/17 18:00 05/30/17 23:44 DC 05/30/17 18:15 Procedures/MDM MDM The patient's presentation warrants further investigation. LABS The patient's blood work was obtained and reviewed. The patient's CBC shows no leukocytosis and no left shift. The patient is afebrile and does not appear systemically ill. I do not suspect a systemic infection. The patient is not anemic today. The patient's platelet count is unremarkable. The patient's BMP shows no signs of metabolic or electrolyte emergencies. She is hyperglycemic and does have a mild anion gap, but her CO2 is within normal limits. I have low suspicion for DKA. She may benefit from some IV fluids. The patient has unremarkable renal function testing. Her troponin is negative. EKG EKG read by me: Rate/Rhythm: Regular rhythm, tachycardia and a sawtooth pattern that appears to be atrial flutter at 2-1 conduction at a rate of 133 Intervals: Normal QRS and QTc [place]: Left shifted Impression: Atrial flutter. No evidence of acute ischemia IMAGING CXR Marked cardiomegaly with aortic atherosclerotic vascular calcifications. The lungs are clear. No acute infiltrate is seen. The surrounding osseous structures are notable for benign chronic senescent changes. The appearances are stable when compared to the prior study. IMPRESSION: 1. Cardiomegaly with aortic atherosclerotic vascular calcifications. 2. Benign chronic senescent changes. 3. Stable appearances compared to the prior study. Electronically viewed and signed by .Kirill Das MD, on 05/30/2017 18:27 TREATMENT/DISPOSITION The patient is feeling palpitations, associated with atrial flutter on an EKG. The patient denies any chest pain or trouble breathing. Her troponin is negative and I have low suspicion for acute coronary syndrome. The patient was given a bolus of Cardizem and started on a Cardizem drip which did bring her rate down to less than 100. Her blood pressure remained stable. The patient's rhythm at this time appears to be atrial flutter with variable conduction. At this time, I feel that the patient requires admission for further evaluation and management. Thyroid studies may be checked in the hospital. However, aside from her tachycardia, she does not have any other findings concerning for hyperthyroidism or thyroid storm. The patient will be admitted to Dr. Tee in accordance with the patient's insurance. The patient was accepted by Dr. Tee at 20:35PM on May 30, 2017. The patient's blood pressure was elevated at greater than 120/80 while in the emergency department. The patient was otherwise stable with no evidence of hypertensive urgency or emergency or end organ damage. This may be further monitored in the hospital. CRITICAL CARE NOTE Time: 35 minutes excluding all billable procedures. Treatments/Evaluations: Evaluation of the patient's medical record including previous records & current laboratory/imaging studies, close monitoring, potential interventions if hemodynamically unstable or cardiopulmonary decline or neurologic decline, maintaining tight fluid balance, any discussions with the family regarding the patient's status and prognosis. Disclaimer: Inadvertent spelling and grammatical errors are likely due to EHR/ dictation software use and do not reflect on the overall quality of patient care. Note that the electronic time recorded on this note does not necessarily reflect the actual time of the patient encounter. Departure Diagnosis: Primary Impression: Atrial flutter Atrial flutter type: typical Qualified Code: I48.3 - Typical atrial flutter Additional Impressions: Palpitations Hyperglycemia Condition: OMEGA Granado MD May 30, 2017 17:35
[2017-05-30] MEDS ORDERED: DILTIAZEM 25 MG INJ IV ONE (18:00)
[2017-05-30] MEDS ORDERED: DILTIAZEM-D5W 125MG/125ML DRIP 125 ML IV SCH (18:00)
[2017-05-30 18:15] LABS: WHITE BLOOD COUNT 6.3 10^3/ul (4.8-10.8)
[2017-05-30 18:16] LABS: BASOPHILS % 0.6 % (0.0-2.0); EOSINOPHILS # 0.1 10^3/ul (0.0-0.5); EOSINOPHILS % 1.4 % (0.0-7.0); HEMATOCRIT 45.7 % (37.0-47.0); HEMOGLOBIN 14.8 g/dl (12.0-16.0); LYMPHOCYTES # 2.1 10^3/ul (0.8-2.9); LYMPHOCYTES % 33.9 % (15.0-51.0); MEAN CORPUSCULAR HEMOGLOBIN 31.3 pg (29.0-33.0); MEAN CORPUSCULAR HGB CONC 32.4 g/dl (32.0-37.0); MEAN CORPUSCULAR VOLUME 96.6 fl (82.0-101.0); MEAN PLATELET VOLUME 12.4 fl (7.4-10.4); MONOCYTE # 0.5 10^3/ul (0.3-0.9); MONOCYTES % 7.8 % (0.0-11.0); NEUTROPHIL # 3.5 10^3/ul (1.6-7.5); PLATELET COUNT 166 10^3/UL (140-415); RED BLOOD COUNT 4.73 10^6/ul (4.20-5.40); RED CELL DISTRIBUTION WIDTH 13.4 % (11.5-14.5)
--- NOTE | 2017-05-30 18:28 | RADRPT ---
PROCEDURE: XR Chest. CLINICAL INDICATION: Dyspnea TECHNIQUE: Single frontal chest x-ray. COMPARISON: Chest x-ray 03/13/2017 FINDINGS: Marked cardiomegaly with aortic atherosclerotic vascular calcifications. The lungs are clear. No acu te infiltrate is seen. The surrounding osseous structures are notable for benign chronic senescent changes. The appearances are stable when compared to the prior study. IMPRESSION: 1. Cardiomegaly with aortic atherosclerotic vascular calcifications. 2. Benign chronic senescent changes. 3. Stable appearances compared to the prior study. RPTAT: PP .Kirill Das MD, MD Date Time Electronically viewed and signed by .Kirill Das MD, MD on 05/30/2017 18:27 .B/
[2017-05-30 18:35] LABS: ANION GAP 20 (8-16); BLOOD UREA NITROGEN 17 mg/dl (7-20); CALCIUM 9.6 mg/dl (8.4-10.2); CARBON DIOXIDE 25 mmol/L (21-31); CHLORIDE 104 mmol/L (97-110); CREATININE 0.77 mg/dl (0.44-1.00); GLUCOSE 165 mg/dl (70-220); POTASSIUM 4.4 mmol/L (3.5-5.1); SODIUM 145 mmol/L (135-144)
[2017-05-30 18:46] LABS: TROPONIN-I < 0.012 ng/ml (0.00-0.12)
[2017-05-30 20:30] VITALS: TEMP 98
[2017-05-30] MEDS ORDERED: ONDANSETRON 4 MG INJ IV PRN (21:00)
[2017-05-30] MEDS ORDERED: ACETAMINOPHEN 325 MG TAB PO PRN ×2 (21:00→23:00)
[2017-05-30 22:08] VITALS: PULSE 88
[2017-05-30 22:14] VITALS: Ht 167.6 cm; Wt 62.4 kg
[2017-05-30] MEDS ORDERED: GLUCAGON 1 MG INJ IM PRN (23:45)
[2017-05-30] MEDS ORDERED: GLUCOSE GEL 15 GRAM TUBE BUCCAL PRN (23:45)
[2017-05-30] MEDS ORDERED: DEXTROSE 50% 50 ML SYRINGE IV PRN ×2 (23:45)
[2017-05-30] MEDS ORDERED: GLUCOSE GEL 15 GRAM TUBE PO PRN ×2 (23:45)
[2017-05-30] MEDS: DILTIAZEM-D5W 125MG/125ML DRIP 125 ML IV PRN (23:53)
[2017-05-31] VITALS (9 sets, daily range): BP systolic 118–140; BP diastolic 60–83; PULSE 64–109; RESP 18–20
[2017-05-31] MEDS: APIXABAN 5 MG TABLET PO SCH ×3 (01:43→21:52)
[2017-05-31] MEDS ORDERED: ACCU-CHEK XX SCH ×2 (02:00)
[2017-05-31] MEDS: DILTIAZEM-D5W 125MG/125ML DRIP 125 ML IV PRN ×3 (06:23→18:26)
[2017-05-31] MEDS ORDERED: INSULIN ASPART [NOVOLOG] 3 ML PEN SC SCH ×2 (07:55→17:55)
[2017-05-31 08:15] LABS: BASOPHILS % 0.8 % (0.0-2.0); EOSINOPHILS # 0.1 10^3/ul (0.0-0.5); EOSINOPHILS % 1.1 % (0.0-7.0); HEMATOCRIT 38.5 % (37.0-47.0); HEMOGLOBIN 12.7 g/dl (12.0-16.0); LYMPHOCYTES # 1.6 10^3/ul (0.8-2.9); LYMPHOCYTES % 30.3 % (15.0-51.0); MEAN CORPUSCULAR HEMOGLOBIN 32.1 pg (29.0-33.0); MEAN CORPUSCULAR VOLUME 97.2 fl (82.0-101.0); MEAN PLATELET VOLUME 12.9 fl (7.4-10.4); MONOCYTE # 0.5 10^3/ul (0.3-0.9); MONOCYTES % 10.1 % (0.0-11.0); NEUTROPHILS % 57.5 % (39.0-77.0); PLATELET COUNT 137 10^3/UL (140-415); RED BLOOD COUNT 3.96 10^6/ul (4.20-5.40); RED CELL DISTRIBUTION WIDTH 13.2 % (11.5-14.5); WHITE BLOOD COUNT 5.2 10^3/ul (4.8-10.8)
[2017-05-31 08:40] LABS: CREATININE 0.81 mg/dl (0.44-1.00); POTASSIUM 4.8 mmol/L (3.5-5.1)
[2017-05-31 09:11] LABS: THYROID STIMULATING HORMONE 0.3 MIU/L (0.465-4.680)
[2017-05-31] MEDS: traMADol 50 MG TAB PO SCH ×2 (12:00→21:53)
[2017-05-31] MEDS ORDERED: INSULIN GLARGINE [LANtus] 3 ML PEN SC ONE (12:30)
--- NOTE | 2017-05-31 16:28 | RADRPT ---
PROCEDURE: XR Chest. CLINICAL INDICATION: Shortness of breath TECHNIQUE: AP and lateral view of the chest were obtained. COMPARISON: 05/30/2017 FINDINGS: Cardiac/vascular structures: Stable cardiomediastinal silhouette. Aortic calcifications. Pulmonary: Lungs are clear. Small bilateral pleural effusions on lateral view. No evidence of pneum othorax. Osseous structures: Degenerative changes of the shoulders. Soft tissues: Normal IMPRESSION: Small bilateral pleural effusions. Aortic atherosclerotic calcifications. RPTAT:AAJJ Fam Melvin Physician Date Time Electronically viewed and signed by Fam Melvin Physician on 05/31/2017 16:27 /
[2017-05-31] MEDS ORDERED: CEPASTAT LOZENGE MT PRN (17:30)
[2017-05-31] MEDS: INSULIN ASPART [NOVOLOG] 3 ML PEN SC SCH ×3 (18:00→21:00)
[2017-05-31] MEDS: DIGOXIN 500 MCG INJ IV SCH (18:02)
[2017-05-31] MEDS: PANTOPRAZOLE (EC) 40 MG TAB PO SCH (18:02)
--- NOTE | 2017-05-31 18:08 | CONS ---
DATE OF ADMISSION: 05/30/2017 DATE OF CONSULTATION: 05/31/2017 CARDIOVASCULAR CONSULTATION REASON FOR CONSULTATION: Atrial flutter with variable block. REQUESTING PHYSICIAN: Dr. Eddie Tee. HISTORY OF PRESENT ILLNESS: Ms. Melendez is a 77-year-old female with history of hypertension, d yslipidemia, diabetes mellitus, atrial flutter, recently admitted, who presents with complaints of s hortness of breath, palpitations, her temperature of 98, blood pressure 145/98, pulse 132, respirato ry rate 18, saturating 99%. Palpitations, shortness of breath. Upon arrival in the Emergency Depar tment, temperature 98, blood pressure 140/98, pulse 132, respiratory rate 18, saturating 99%. [facility] white count 6.3, hemoglobin 14.8, platelet count 166. Sodium 145, potassium 4.4, creatinine 0.7, BUN 17. Troponin negative. TSH suppressed at 0.30. The patient underwent a c hest x-ray revealing cardiomegaly with aortic atherosclerotic vascular calcifications, benign chroni c senescent changes. The patient's electrocardiogram revealed atrial flutter, rate of 132 with norm al axis, normal intervals, and nonspecific ST-T abnormalities. The patient was treated with insulin , diltiazem IV push, started on IV drip and admitted to the floor. The patient has been monitored o n telemetry revealing now rate controlled atrial flutter. The patient at this time complaining of s hortness of breath, palpitations. Denies chest pain. PAST MEDICAL HISTORY: As above in HPI. MEDICATIONS CURRENTLY IN HOSPITAL: 1. Insulin 2. Lantus. 3. Protonix. 4. Tramadol 50 mg ____. 5. Apixaban 2.5 mg p.o. b.i.d. 6. Tylenol p.r.n. 7. Zofran p.r.n. ALLERGIES: NO KNOWN DRUG ALLERGIES. SOCIAL HISTORY: No tobacco, ETOH or illicit drug use. FAMILY HISTORY: No history of sudden cardiac or early CAD. REVIEW OF SYSTEMS: As above in HPI. CONSTITUTIONAL: No fevers, chills. PULMONARY: Shortness of breath. CARDIOVASCULAR: Palpitations. GASTROINTESTINAL: No vomiting. GENITOURINARY: No hematuria. MUSCULOSKELETAL: Degenerative joint disease. PSYCHIATRIC: The patient denies depression. NEUROLOGIC: No documented history of CVA. PHYSICAL EXAMINATION VITAL SIGNS: Temperature of 98, blood pressure 132/83, pulse 109, respiratory rate 18, saturating 9 8% on 4 liters. GENERAL: The patient is alert, awake, complaining of shortness of breath, palpitations. NECK: JVP approximately 8 to 9 cm water. CHEST: Fair movement throughout with mildly decreased breath sounds at bases bilaterally. HEART: Tachycardic, irregularly irregular rhythm, I/ systolic murmur, nondisplaced PMI. ABDOMEN: Positive bowel sounds, soft. EXTREMITIES: No pitting edema, 1+ pulses bilaterally posterior tibial. LABORATORIES: As above in HPI, most recently from today, sodium 142, potassium 4.8, creatinine 0.8. Troponin negative. TSH suppressed at 0.300. White blood cell count 5.2, hemoglobin 12.7, platele t count 137. IMAGING STUDIES: As above in HPI. No further imaging studies for my review at this time. ECG: As above in HPI. No further electrocardiograms for my review at this time. IMPRESSION: 1. Atrial flutter with rapid ventricular response. 2. Hypertension. 3. Shortness of breath, assess for congestive heart failure. 4. Diabetes mellitus. 5. Suppressed TSH. RECOMMENDATIONS: 1. At this time, would maintain the patient on telemetry monitoring to follow rhythm and rate contr ol closely. 2. Will complete a rule out for myocardial infarction to ensure this patient's ____ have not result ed in acute coronary syndrome. 3. Patient is status post prior 2D echo in 03/2013 revealing mild cardiomyopathy, decreased left ve ntricular ejection fraction, approximately 40% and a stress test at that time that revealed EF of 36 % with no stress-induced ischemia. 4. Would continue the patient's current Eliquis. 5. Start patient on beta abi and thereafter will give low dose afterload reduction as tolerated for treatment of cardiomyopathy. 6. Check a BNP to further assess current volume status. Initiate patient on gentle Lasix diuresis. 7. Check a free T4 to further assess the patient's current thyroid state and check a fasting lipid panel for general risk stratification. Thank you for allowing me to take part in the care of this patient. I will continue to follow very closely with you with further recommendations to be made as patient progresses through his inpatient hospital clinical course. Dictated By: RADHA SALAMANCA/LEONOR Conf#: [id number] DID#: [id number] CC: EDDIE TEE MD;*End*
[2017-05-31] MEDS: METOPROLOL (XL) 25 MG TAB PO SCH (21:53)
[2017-05-31] MEDS: INSULIN GLARGINE [LANtus] 3 ML PEN SC SCH (22:35)
[2017-06-01] VITALS (13 sets, daily range): BP systolic 100–146; BP diastolic 59–80; PULSE 65–108; RESP 17–18
[2017-06-01] MEDS: DIGOXIN 500 MCG INJ IV SCH ×2 (00:32→06:14)
[2017-06-01] MEDS ORDERED: ACCU-CHEK XX SCH (02:00)
[2017-06-01] MEDS: ACCU-CHEK XX SCH (02:00)
[2017-06-01] MEDS: PANTOPRAZOLE (EC) 40 MG TAB PO SCH ×2 (06:14→18:06)
[2017-06-01 06:30] LABS: BASOPHILS % 0.3 % (0.0-2.0); EOSINOPHILS # 0.1 10^3/ul (0.0-0.5); EOSINOPHILS % 1.3 % (0.0-7.0); HEMATOCRIT 38.6 % (37.0-47.0); LYMPHOCYTES # 1.6 10^3/ul (0.8-2.9); LYMPHOCYTES % 26.6 % (15.0-51.0); MEAN CORPUSCULAR HEMOGLOBIN 32.4 pg (29.0-33.0); MEAN CORPUSCULAR HGB CONC 33.7 g/dl (32.0-37.0); MEAN CORPUSCULAR VOLUME 96.3 fl (82.0-101.0); MONOCYTE # 0.5 10^3/ul (0.3-0.9); MONOCYTES % 8.4 % (0.0-11.0); NEUTROPHIL # 3.8 10^3/ul (1.6-7.5); NEUTROPHILS % 63.2 % (39.0-77.0); PLATELET COUNT 147 10^3/UL (140-415); RED BLOOD COUNT 4.01 10^6/ul (4.20-5.40); RED CELL DISTRIBUTION WIDTH 13.2 % (11.5-14.5); WHITE BLOOD COUNT 6.1 10^3/ul (4.8-10.8)
[2017-06-01 06:43] LABS: CALCIUM 8.9 mg/dl (8.4-10.2); CREATININE 0.75 mg/dl (0.44-1.00); POTASSIUM 4.6 mmol/L (3.5-5.1)
[2017-06-01] MEDS: traMADol 50 MG TAB PO SCH ×2 (08:36→21:00)
[2017-06-01] MEDS: FUROSEMIDE 20 MG INJ IV SCH (08:50)
[2017-06-01] MEDS: APIXABAN 5 MG TABLET PO SCH ×2 (08:50→21:28)
[2017-06-01] MEDS: METOPROLOL (XL) 25 MG TAB PO SCH ×2 (08:50→21:28)
[2017-06-01] MEDS: INSULIN ASPART [NOVOLOG] 3 ML PEN SC SCH ×7 (09:03→21:44)
--- NOTE | 2017-06-01 13:13 | CONS ---
Date/Time of Note Date/Time of Note DATE: 06/01/17 TIME: 13:09 Assessment/Plan Assessment/Plan Chief Complaint/Hosp Course IMPRESSION: 1. Atrial flutter/AF with rapid ventricular response.- now improved HR 2. Hypertension. 3. Shortness of breath, assess for congestive heart failure. 4. Diabetes mellitus. 5. Suppressed TSH. 6. Cardiomyopathy-EF 40% by echo 03/2017 Recc: -Tele -Continue BB -Continue eliquis -Continue daily lasix and follow volume status closely -start ACEI afterload reduction Problems: Consultation Date/Type/Reason Admit Date/Time May 30, 2017 at 20:36 Initial Consult Date 05/31/2017 Type of Consultation: cardiology Reason for Consultation PAF Referring Provider: EDDIE MOLINA MD Exam/Review of Systems Vital Signs Vitals Vital Signs Date Time Temp Pulse Resp B/P Pulse Ox O2 Delivery O2 Flow Rate FiO2 06/01/17 08:20 108 06/01/17 07:50 98.1 17 138/80 97 05/31/17 20:00 Nasal Cannula 2.0 Intake and Output 05/31/17 05/31/17 06/01/17 14:59 22:59 06:59 Intake Total 280 ml Balance 280 ml Exam Review of Systems: CONSTITUTIONAL: No fevers, chills. PULMONARY: No sob CARDIOVASCULAR: No chest pain/palpitations GASTROINTESTINAL: No nausea/vomiting. GENITOURINARY: No hematuria/dysuria. MUSCULOSKELETAL: No myagias/arthalgias. PSYCHIATRIC: The patient denies depression. NEUROLOGIC: No weakness Constitutional: alert, oriented Psych: no complaints ENMT: mucosa pink and moist Neck: supple Respiratory: diminished breath sounds (at bases/B) Cardiovascular: regular rate and rhythm Gastrointestinal: non-tender, soft Musculoskeletal: muscle tone (normal) Extremities: edema (none) Neurological: other (No focal deficits) Results Result Diagram: 06/01/17 0551 06/01/17 0550 Results 24 hrs Laboratory Tests Test 05/31/17 17:13 05/31/17 17:42 05/31/17 21:50 06/01/17 00:21 Bedside Glucose 211 179 Troponin I < 0.012 < 0.012 B-Type Natriuretic Peptide 2190 H Test 06/01/17 05:50 06/01/17 05:51 06/01/17 08:03 06/01/17 12:01 Sodium Level 144 Potassium Level 4.6 Chloride Level 108 Carbon Dioxide Level 26 Anion Gap 15 Blood Urea Nitrogen 11 Creatinine 0.75 Glucose Level 189 Hemoglobin A1c 9.1 H Calcium Level 8.9 White Blood Count 6.1 Red Blood Count 4.01 L Hemoglobin 13.0 Hematocrit 38.6 Mean Corpuscular Volume 96.3 Mean Corpuscular Hemoglobin 32.4 Mean Corpuscular Hemoglobin Concent 33.7 Red Cell Distribution Width 13.2 Platelet Count 147 Mean Platelet Volume 13.0 H Neutrophils % 63.2 Lymphocytes % 26.6 Monocytes % 8.4 Eosinophils % 1.3 Basophils % 0.3 Nucleated Red Blood Cells % 0.0 Neutrophils # 3.8 Lymphocytes # 1.6 Monocytes # 0.5 Eosinophils # 0.1 Basophils # 0.0 Nucleated Red Blood Cells # 0.0 Troponin I < 0.012 Bedside Glucose 196 220 Medications Medications Current Medications Acetaminophen (Tylenol Tab) 650 mg Q6H PRN PO PAIN AND OR ELEVATED TEMP Last administered on 05/31/17 14:15; Admin Dose 650 MG; Start 05/30/17 at 23:00 Ondansetron HCl 4 mg 4 mg Q6H PRN IV NAUSEA AND/OR VOMITING; Start 05/30/17 at 23:00 Diltiazem HCl (Cardizem-D5W 125 Mg/125 ml Drip) 125 ml @ 5 mls/hr TITRATE PRN IV PALPITATION Last administered on 05/31/17 18:26; Admin Dose 5 MLS/HR; Start 05/30/17 at 23:30 Miscellaneous Information 1 ea NOTE XX ; Start 05/30/17 at 23:45 Glucose (Glutose) 15 gm Q15M PRN PO DECREASED GLUCOSE; Start 05/30/17 at 23:45 Glucose (Glutose) 22.5 gm Q15M PRN PO DECREASED GLUCOSE; Start 05/30/17 at 23: 45 Dextrose (D50w Syringe) 25 ml Q15M PRN IV DECREASED GLUCOSE; Start 05/30/17 at 23:45 Dextrose (D50w Syringe) 50 ml Q15M PRN IV DECREASED GLUCOSE; Start 05/30/17 at 23:45 Glucagon (Glucagen) 1 mg Q15M PRN IM DECREASED GLUCOSE; Start 05/30/17 at 23: 45 Glucose (Glutose) 15 gm Q15M PRN BUCCAL DECREASED GLUCOSE; Start 05/30/17 at 23:45 Apixaban (Eliquis) 2.5 mg BID PO Last administered on 06/01/17 08:50; Admin Dose 2.5 MG; Start 05/31/17 at 00:46 Tramadol HCl (Ultram) 50 mg BID PO Last administered on 05/31/17 21:53; Admin Dose 50 MG; Start 05/31/17 at 12:00 Insulin Glargine (Lantus) 7 unit DAILY@20 SC Last administered on 05/31/17 22 :35; Admin Dose 7 UNIT; Start 05/31/17 at 20:00 Diagnostic Test (Pha) (Accu-Chek) 1 ea 02 XX ; Start 06/01/17 at 02:00 Pantoprazole (Protonix Tab) 40 mg BID@06,18 PO Last administered on 06/01/17 06:14; Admin Dose 40 MG; Start 05/31/17 at 18:00 Metoprolol Succinate (Toprol Xl) 25 mg BID PO Last administered on 06/01/17 08:50; Admin Dose 25 MG; Start 05/31/17 at 21:00 Furosemide (Lasix) 20 mg DAILY IV Last administered on 06/01/17 08:50; Admin Dose 20 MG; Start 06/01/17 at 09:00 Phenol (Cepastat Lozenge) 1 lozenge Q1H PRN MT COUGH; Start 05/31/17 at 17:30 RADHA STEPHEN 19, 2017 13:13
--- NOTE | 2017-06-01 14:52 | HP ---
Date/Time of Note Date/Time of Note DATE: 05/31/17 TIME: 15:50 Assessment/Plan Lines/Catheters IV Catheter Type (from Nrsg): Peripheral IV Urinary Cath still in place: No Assessment/Plan Assessment/Plan Atrial flutter - admit to tele - cardiology consult- Dr Fontenot notified. Palpitations Hyperglycemia DM - Glycemic control - Hb AIC am [facility] Dr Pang / staff HPI/ROS Admit Date/Time Admit Date/Time May 30, 2017 at 20:36 ROS HPI Is a 77-year-old female with a past medical history of hypertension, diabetes, GERD, palpitations on Xarelto who is presenting with palpitations today. She went to her primary care doctor's office who got a EKG. There is concern that she was in atrial flutter, so she was sent here for further evaluation. The patient does endorse mild palpitations at this time, but she otherwise feels well. The patient denies feeling sick recently. The patient denies fever or chills. The patient has had no headache or vision changes. The patient does not endorse neck or back pain. The patient denies lightheadedness or dizziness. The patient has had no chest pain or shortness of breath or trouble breathing. The patient denies nausea or vomiting. The patient denies abdominal pain or changes to bowel movements or urination. The patient has had no focal deficits. The patient has had no weakness or numbness or tingling to the face or extremities. ROS All systems reviewed and are negative except as per history of present illness. Allergies No Known Allergy (Unverified , 05/30/17) Respiratory: cough Cardiovascular: no complaints Gastrointestinal: no complaints Genitourinary: no complaints PMH/Family/Social Past Medical History PMhx/Soc History of Surgery: No Anesthesia Reaction: No Hx Neurological Disorder: No Hx Respiratory Disorders: No Hx Cardiac Disorders: Yes (HTN, DM, Palpitations) Hx Psychiatric Problems: No Hx Miscellaneous Medical Probl: Yes (GERD) Hx Alcohol Use: No Hx Substance Use: No Hx Tobacco Use: No FmHx Family History: diabetes Social History Smoking Status: Never smoker Exam/Review of Systems Vital Signs Vitals Vital Signs Date Time Temp Pulse Resp B/P Pulse Ox O2 Delivery O2 Flow Rate FiO2 05/31/17 12:45 84 05/31/17 08:00 98.1 18 132/83 99 4.0 05/31/17 04:00 Nasal Cannula Intake and Output 05/30/17 05/30/17 05/31/17 15:00 23:00 07:00 Intake Total 350 ml Balance 350 ml Exam Constitutional: alert, well developed Cardiovascular: nl pulses Gastrointestinal: non-tender, soft Musculoskeletal: nl extremities to inspection Extremities: normal pulses Neurological: nl speech Labs Result Diagram: 05/31/17 0647 05/31/17 0647 Medications Medications Current Medications Acetaminophen (Tylenol Tab) 650 mg Q6H PRN PO PAIN AND OR ELEVATED TEMP Last administered on 05/31/17 14:15; Admin Dose 650 MG; Start 05/30/17 at 23:00 Ondansetron HCl 4 mg 4 mg Q6H PRN IV NAUSEA AND/OR VOMITING; Start 05/30/17 at 23:00 Diltiazem HCl (Cardizem-D5W 125 Mg/125 ml Drip) 125 ml @ 5 mls/hr TITRATE PRN IV PALPITATION Last administered on 05/31/17 06:23; Admin Dose 5 MLS/HR; Start 05/30/17 at 23:30 Miscellaneous Information 1 ea NOTE XX ; Start 05/30/17 at 23:45 Glucose (Glutose) 15 gm Q15M PRN PO DECREASED GLUCOSE; Start 05/30/17 at 23:45 Glucose (Glutose) 22.5 gm Q15M PRN PO DECREASED GLUCOSE; Start 05/30/17 at 23: 45 Dextrose (D50w Syringe) 25 ml Q15M PRN IV DECREASED GLUCOSE; Start 05/30/17 at 23:45 Dextrose (D50w Syringe) 50 ml Q15M PRN IV DECREASED GLUCOSE; Start 05/30/17 at 23:45 Glucagon (Glucagen) 1 mg Q15M PRN IM DECREASED GLUCOSE; Start 05/30/17 at 23: 45 Glucose (Glutose) 15 gm Q15M PRN BUCCAL DECREASED GLUCOSE; Start 05/30/17 at 23:45 Apixaban (Eliquis) 2.5 mg BID PO Last administered on 05/31/17 08:29; Admin Dose 2.5 MG; Start 05/31/17 at 00:46 Tramadol HCl (Ultram) 50 mg BID PO ; Start 05/31/17 at 12:00 Insulin Glargine (Lantus) 7 unit DAILY@20 SC ; Start 05/31/17 at 20:00 Diagnostic Test (Pha) (Accu-Chek) 1 XX ; Start 06/01/17 at 02:00 JAD GALLOWAY May 31, 2017 16:00
--- NOTE | 2017-06-01 14:54 | PN ---
Date/Time of Note Date/Time of Note DATE: 06/01/17 TIME: 14:52 Assessment/Plan VTE Prophylaxis VTE Prophylaxis Intervention: other Lines/Catheters IV [facility] Type [facility] Peripheral IV Urinary Cath still in place: No Assessment/Plan Assessment/Plan -Atrial flutter - per cardiology consult - off Cardizem drip- controlled Afib now -Palpitations -Hyperglycemia -DM - Glycemic control - Hb AIC am Dw Dr Pang / staff Subjective 24 Hr Interval Summary Free Text/Dictation nad, off Cardizem drip- controlled Afib now Exam/Review of Systems Vital Signs Vitals Vital Signs Date Time Temp Pulse Resp B/P Pulse Ox O2 Delivery O2 Flow Rate FiO2 06/01/17 12:16 72 06/01/17 07:50 98.1 17 138/80 97 05/31/17 20:00 Nasal Cannula 2.0 Intake and Output 05/31/17 05/31/17 06/01/17 15:00 23:00 07:00 Intake Total 280 ml Balance 280 ml Exam Constitutional: alert Respiratory: normal air movement Cardiovascular: nl pulses, other (s1s2) Gastrointestinal: non-tender, soft Musculoskeletal: nl extremities to inspection Extremities: normal pulses Neurological: other Results Result Diagram: 06/01/17 0551 06/01/17 0550 Results 24 hrs Laboratory Tests Test 05/31/17 17:13 05/31/17 17:42 05/31/17 21:50 06/01/17 00:21 Bedside Glucose 211 179 Troponin I < 0.012 < 0.012 B-Type Natriuretic Peptide 2190 H Test 06/01/17 05:50 06/01/17 05:51 06/01/17 08:03 06/01/17 12:01 Sodium Level 144 Potassium Level 4.6 Chloride Level 108 Carbon Dioxide Level 26 Anion Gap 15 Blood Urea Nitrogen 11 Creatinine 0.75 Glucose Level 189 Hemoglobin A1c 9.1 H Calcium Level 8.9 White Blood Count 6.1 Red Blood Count 4.01 L Hemoglobin 13.0 Hematocrit 38.6 Mean Corpuscular Volume 96.3 Mean Corpuscular Hemoglobin 32.4 Mean Corpuscular Hemoglobin Concent 33.7 Red Cell Distribution Width 13.2 Platelet Count 147 Mean Platelet Volume 13.0 H Neutrophils % 63.2 Lymphocytes % 26.6 Monocytes % 8.4 Eosinophils % 1.3 Basophils % 0.3 Nucleated Red Blood Cells % 0.0 Neutrophils # 3.8 Lymphocytes # 1.6 Monocytes # 0.5 Eosinophils # 0.1 Basophils # 0.0 Nucleated Red Blood Cells # 0.0 Troponin I < 0.012 Bedside Glucose 196 220 Medications Medications Current Medications Acetaminophen (Tylenol Tab) 650 mg Q6H PRN PO PAIN AND OR ELEVATED TEMP Last administered on 05/31/17 14:15; Admin Dose 650 MG; Start 05/30/17 at 23:00 Ondansetron HCl 4 mg 4 mg Q6H PRN IV NAUSEA AND/OR VOMITING; Start 05/30/17 at 23:00 Diltiazem HCl (Cardizem-D5W 125 Mg/125 ml Drip) 125 ml @ 5 mls/hr TITRATE PRN IV PALPITATION Last administered on 05/31/17 18:26; Admin Dose 5 MLS/HR; Start 05/30/17 at 23:30 Miscellaneous Information 1 ea NOTE XX ; Start 05/30/17 at 23:45 Glucose (Glutose) 15 gm Q15M PRN PO DECREASED GLUCOSE; Start 05/30/17 at 23:45 Glucose (Glutose) 22.5 gm Q15M PRN PO DECREASED GLUCOSE; Start 05/30/17 at 23: 45 Dextrose (D50w Syringe) 25 ml Q15M PRN IV DECREASED GLUCOSE; Start 05/30/17 at 23:45 Dextrose (D50w Syringe) 50 ml Q15M PRN IV DECREASED GLUCOSE; Start 05/30/17 at 23:45 Glucagon (Glucagen) 1 mg Q15M PRN IM DECREASED GLUCOSE; Start 05/30/17 at 23: 45 Glucose (Glutose) 15 gm Q15M PRN BUCCAL DECREASED GLUCOSE; Start 05/30/17 at 23:45 Apixaban (Eliquis) 2.5 mg BID PO Last administered on 06/01/17 08:50; Admin Dose 2.5 MG; Start 05/31/17 at 00:46 Tramadol HCl (Ultram) 50 mg BID PO Last administered on 05/31/17 21:53; Admin Dose 50 MG; Start 05/31/17 at 12:00 Insulin Glargine (Lantus) 7 unit DAILY@20 SC Last administered on 05/31/17 22 :35; Admin Dose 7 UNIT; Start 05/31/17 at 20:00 Diagnostic Test (Pha) (Accu-Chek) 1 ea 02 XX ; Start 06/01/17 at 02:00 Pantoprazole (Protonix Tab) 40 mg BID@,18 PO Last administered on 06/01/17 06:14; Admin Dose 40 MG; Start 05/31/17 at 18:00 Metoprolol Succinate (Toprol Xl) 25 mg BID PO Last administered on 06/01/17 08:50; Admin Dose 25 MG; Start 05/31/17 at 21:00 Furosemide (Lasix) 20 mg DAILY IV Last administered on 06/01/17 08:50; Admin Dose 20 MG; Start 06/01/17 at 09:00 Phenol (Cepastat Lozenge) 1 lozenge Q1H PRN MT COUGH; Start 05/31/17 at 17:30 Lisinopril (Zestril) 2.5 mg DAILY PO ; Start 06/02/17 at 09:00 JAD GALLOWAY Jun 01, 2017 14:54
[2017-06-01] MEDS: INSULIN GLARGINE [LANtus] 3 ML PEN SC SCH (21:50)
[2017-06-02] VITALS (18 sets, daily range): BP systolic 115–161; BP diastolic 60–74; PULSE 69–150; RESP 15–18
[2017-06-02] MEDS: ACCU-CHEK XX SCH (02:00)
[2017-06-02] MEDS: PANTOPRAZOLE (EC) 40 MG TAB PO SCH ×2 (06:37→17:46)
[2017-06-02] MEDS: LISINOPRIL 5 MG TAB PO SCH (08:51)
[2017-06-02] MEDS: traMADol 50 MG TAB PO SCH ×2 (08:53→21:01)
[2017-06-02] MEDS: FUROSEMIDE 20 MG INJ IV SCH ×2 (08:54→17:46)
[2017-06-02] MEDS: APIXABAN 5 MG TABLET PO SCH ×2 (08:54→21:00)
[2017-06-02] MEDS: METOPROLOL (XL) 25 MG TAB PO SCH (08:54)
[2017-06-02] MEDS: INSULIN ASPART [NOVOLOG] 3 ML PEN SC SCH ×7 (09:04→21:00)
--- NOTE | 2017-06-02 11:52 | CONS ---
Date/Time of Note Date/Time of Note DATE: 06/02/17 TIME: 11:50 Assessment/Plan Assessment/Plan Chief Complaint/Hosp Course IMPRESSION: 1. Atrial flutter/AF with rapid ventricular response.- now improved HR 2. Hypertension. 3. Shortness of breath, assess for congestive heart failure. 4. Diabetes mellitus. 5. Suppressed TSH. 6. Cardiomyopathy-EF 40% by echo 03/2017 Recc: -Tele -Continue BB with slight increase to assure good hr control -Continue eliquis -Continue daily lasix and follow volume status closely -Continue ACEI afterload reduction Problems: Consultation Date/Type/Reason Admit Date/Time May 30, 2017 at 20:36 Initial Consult Date 05/31/2017 Type of Consultation: cardiology Reason for Consultation AFL/CHF Referring Provider: EDDIE MOLINA MD Exam/Review of Systems Vital Signs Vitals Vital Signs Date Time Temp Pulse Resp B/P Pulse Ox O2 Delivery O2 Flow Rate FiO2 06/02/17 11:44 97.3 70 16 143/69 98 05/31/17 20:00 Nasal Cannula 2.0 Intake and Output 06/01/17 06/01/17 06/02/17 15:00 23:00 07:00 Intake Total 700 ml 300 ml Balance 700 ml 300 ml Exam Review of Systems: CONSTITUTIONAL: No fevers, chills. PULMONARY: No sob CARDIOVASCULAR: No chest pain/palpitations GASTROINTESTINAL: No nausea/vomiting. GENITOURINARY: No hematuria/dysuria. MUSCULOSKELETAL: No myagias/arthalgias. PSYCHIATRIC: The patient denies depression. NEUROLOGIC: No weakness Constitutional: alert, oriented Psych: no complaints Head: normocephalic ENMT: mucosa pink and moist Neck: jvd (9 cm water), supple Respiratory: diminished breath sounds (at bases/B) Cardiovascular: regular rate and rhythm Gastrointestinal: non-tender, soft Musculoskeletal: muscle tone (normal) Extremities: edema (none) Neurological: other (No focal deficits) Results Result Diagram: 06/01/17 0551 06/01/17 0550 Results 24 hrs Laboratory Tests Test 06/01/17 12:01 06/01/17 17:46 06/01/17 21:25 06/02/17 02:14 Bedside Glucose 220 153 219 191 Test 06/02/17 08:46 Bedside Glucose 202 Medications Medications Current Medications Acetaminophen (Tylenol Tab) 650 mg Q6H PRN PO PAIN AND OR ELEVATED TEMP Last administered on 05/31/17 14:15; Admin Dose 650 MG; Start 05/30/17 at 23:00 Ondansetron HCl 4 mg 4 mg Q6H PRN IV NAUSEA AND/OR VOMITING; Start 05/30/17 at 23:00 Diltiazem HCl (Cardizem-D5W 125 Mg/125 ml Drip) 125 ml @ 5 mls/hr TITRATE PRN IV PALPITATION Last administered on 05/31/17 18:26; Admin Dose 5 MLS/HR; Start 05/30/17 at 23:30 Miscellaneous Information 1 ea NOTE XX ; Start 05/30/17 at 23:45 Glucose (Glutose) 15 gm Q15M PRN PO DECREASED GLUCOSE; Start 05/30/17 at 23:45 Glucose (Glutose) 22.5 gm Q15M PRN PO DECREASED GLUCOSE; Start 05/30/17 at 23: 45 Dextrose (D50w Syringe) 25 ml Q15M PRN IV DECREASED GLUCOSE; Start 05/30/17 at 23:45 Dextrose (D50w Syringe) 50 ml Q15M PRN IV DECREASED GLUCOSE; Start 05/30/17 at 23:45 Glucagon (Glucagen) 1 mg Q15M PRN IM DECREASED GLUCOSE; Start 05/30/17 at 23: 45 Glucose (Glutose) 15 gm Q15M PRN BUCCAL DECREASED GLUCOSE; Start 05/30/17 at 23:45 Apixaban (Eliquis) 2.5 mg BID PO Last administered on 06/02/17 08:54; Admin Dose 2.5 MG; Start 05/31/17 at 00:46 Tramadol HCl (Ultram) 50 mg BID PO Last administered on 06/02/17 08:53; Admin Dose 50 MG; Start 05/31/17 at 12:00 Insulin Glargine (Lantus) 7 unit DAILY@20 SC Last administered on 06/01/17 21 :50; Admin Dose 7 UNIT; Start 05/31/17 at 20:00 Diagnostic Test (Pha) (Accu-Chek) 1 ea 02 XX Last administered on 06/02/17 02 :00; Admin Dose 1 EA; Start 06/01/17 at 02:00 Pantoprazole (Protonix Tab) 40 mg BID@,18 PO Last administered on 06/02/17 06:37; Admin Dose 40 MG; Start 05/31/17 at 18:00 Metoprolol Succinate (Toprol Xl) 25 mg BID PO Last administered on 06/02/17 08:54; Admin Dose 25 MG; Start 05/31/17 at 21:00 Furosemide (Lasix) 20 mg DAILY IV Last administered on 06/02/17 08:54; Admin Dose 20 MG; Start 06/01/17 at 09:00 Phenol (Cepastat Lozenge) 1 lozenge Q1H PRN MT COUGH; Start 05/31/17 at 17:30 Lisinopril (Zestril) 2.5 mg DAILY PO Last administered on 06/02/17 08:51; Admin Dose 2.5 MG; Start 06/02/17 at 09:00 RADHA STEPHEN 20, 2017 11:52
[2017-06-02] MEDS ORDERED: DILTIAZEM 25 MG INJ ONE (14:07)
[2017-06-02] MEDS ORDERED: DILTIAZEM 25 MG INJ IV ONE (14:30)
--- NOTE | 2017-06-02 16:28 | PN ---
Date/Time of Note Date/Time of Note DATE: 06/02/17 TIME: 16:24 Assessment/Plan VTE Prophylaxis VTE Prophylaxis Intervention: other Lines/Catheters IV Catheter Type (from Nrsg): Peripheral IV Urinary Cath still in place: No Assessment/Plan Assessment/Plan -Atrial flutter - per cardiology consult - off Cardizem drip- controlled Afib now -Palpitations -Hyperglycemia -DM - Glycemic control - Hb AIC - Dw Dr Pang / staff Subjective 24 Hr Interval Summary Free Text/Dictation SR now, converted from Afib HR 150 to 1st degree block, HR 81. dW STAFF. Respiratory: no complaints Cardiovascular: palpitations Gastrointestinal: no complaints Genitourinary: no complaints Musculoskeletal: no complaints Exam/Review of Systems Vital Signs Vitals Vital Signs Date Time Temp Pulse Resp B/P Pulse Ox O2 Delivery O2 Flow Rate FiO2 06/02/17 16:22 75 06/02/17 15:41 153/69 96 06/02/17 15:34 96.1 15 06/02/17 14:27 Room Air 05/31/17 20:00 2.0 Intake and Output 06/01/17 06/01/17 06/02/17 15:00 23:00 07:00 Intake Total 700 ml 300 ml Balance 700 ml 300 ml Exam Constitutional: alert, well developed Respiratory: clear to auscultation, diminished breath sounds Cardiovascular: nl pulses Gastrointestinal: non-tender, soft Musculoskeletal: nl extremities to inspection Extremities: normal pulses Neurological: nl mental status, nl speech Results Result Diagram: 06/01/17 0551 06/01/17 0550 Results 24 hrs Laboratory Tests Test 06/01/17 17:46 06/01/17 21:25 06/02/17 02:14 06/02/17 08:46 Bedside Glucose 153 219 191 202 Test 06/02/17 11:53 Bedside Glucose 251 H Medications Medications Current Medications Acetaminophen (Tylenol Tab) 650 mg Q6H PRN PO PAIN AND OR ELEVATED TEMP Last administered on 05/31/17t 14:15; Admin Dose 650 MG; Start 05/30/17 at 23:00 Ondansetron HCl 4 mg 4 mg Q6H PRN IV NAUSEA AND/OR VOMITING; Start 05/30/17 at 23:00 Diltiazem HCl (Cardizem-D5W 125 Mg/125 ml Drip) 125 ml @ 5 mls/hr TITRATE PRN IV PALPITATION Last administered on 05/31/17 18:26; Admin Dose 5 MLS/HR; Start 05/30/17 at 23:30 Miscellaneous Information 1 ea NOTE XX ; Start 05/30/17 at 23:45 Glucose (Glutose) 15 gm Q15M PRN PO DECREASED GLUCOSE; Start 05/30/17 at 23:45 Glucose (Glutose) 22.5 gm Q15M PRN PO DECREASED GLUCOSE; Start 05/30/17 at 23: 45 Dextrose (D50w Syringe) 25 ml Q15M PRN IV DECREASED GLUCOSE; Start 05/30/17 at 23:45 Dextrose (D50w Syringe) 50 ml Q15M PRN IV DECREASED GLUCOSE; Start 05/30/17 at 23:45 Glucagon (Glucagen) 1 mg Q15M PRN IM DECREASED GLUCOSE; Start 05/30/17 at 23: 45 Glucose (Glutose) 15 gm Q15M PRN BUCCAL DECREASED GLUCOSE; Start 05/30/17 at 23:45 Apixaban (Eliquis) 2.5 mg BID PO Last administered on 06/02/17 08:54; Admin Dose 2.5 MG; Start 05/31/17 at 00:46 Tramadol HCl (Ultram) 50 mg BID PO Last administered on 06/02/17 08:53; Admin Dose 50 MG; Start 05/31/17 at 12:00 Insulin Glargine (Lantus) 7 unit DAILY@20 SC Last administered on 06/01/17 21 :50; Admin Dose 7 UNIT; Start 05/31/17 at 20:00 Diagnostic Test (Pha) (Accu-Chek) 1 ea 02 XX Last administered on 06/02/17 02 :00; Admin Dose 1 EA; Start 06/01/17 at 02:00 Pantoprazole (Protonix Tab) 40 mg BID@06,18 PO Last administered on 06/02/17 06:37; Admin Dose 40 MG; Start 05/31/17 at 18:00 Phenol (Cepastat Lozenge) 1 lozenge Q1H PRN MT COUGH; Start 05/31/17 at 17:30 Lisinopril (Zestril) 2.5 mg DAILY PO Last administered on 06/02/17 08:51; Admin Dose 2.5 MG; Start 06/02/17 at 09:00 Metoprolol Succinate (Toprol Xl) 50 mg BID PO ; Start 06/02/17 at 21:00 Diltiazem HCl (Cardizem Iv) 5 mg Q4 PRN IV PALPITATION; Start 06/02/17 at 18: 30 JAD GALLOWAY Jun 02, 2017 16:28
[2017-06-02] MEDS: METOPROLOL (XL) 50 MG TAB PO SCH (21:00)
[2017-06-02] MEDS: INSULIN GLARGINE [LANtus] 3 ML PEN SC SCH (21:05)
[2017-06-02] MEDS: ONDANSETRON 4 MG INJ IV PRN (21:18)
[2017-06-03] VITALS (12 sets, daily range): BP systolic 128–145; BP diastolic 58–70; PULSE 65–81; RESP 17–19
[2017-06-03] MEDS: ACCU-CHEK XX SCH (02:00)
[2017-06-03] MEDS: PANTOPRAZOLE (EC) 40 MG TAB PO SCH ×2 (06:25→18:00)
[2017-06-03] MEDS: FUROSEMIDE 20 MG INJ IV SCH ×2 (06:26→18:37)
[2017-06-03] MEDS: INSULIN ASPART [NOVOLOG] 3 ML PEN SC SCH ×7 (07:55→20:45)
[2017-06-03 08:06] LABS: BASOPHILS % 0.5 % (0.0-2.0); EOSINOPHILS # 0.1 10^3/ul (0.0-0.5); EOSINOPHILS % 1.7 % (0.0-7.0); HEMATOCRIT 41.1 % (37.0-47.0); HEMOGLOBIN 14.1 g/dl (12.0-16.0); LYMPHOCYTES # 1.8 10^3/ul (0.8-2.9); LYMPHOCYTES % 27.1 % (15.0-51.0); MEAN CORPUSCULAR HEMOGLOBIN 32.3 pg (29.0-33.0); MEAN CORPUSCULAR HGB CONC 34.3 g/dl (32.0-37.0); MEAN CORPUSCULAR VOLUME 94.1 fl (82.0-101.0); MEAN PLATELET VOLUME 12.5 fl (7.4-10.4); MONOCYTE # 0.6 10^3/ul (0.3-0.9); MONOCYTES % 9.7 % (0.0-11.0); NEUTROPHILS % 60.8 % (39.0-77.0); PLATELET COUNT 155 10^3/UL (140-415); RED BLOOD COUNT 4.37 10^6/ul (4.20-5.40); RED CELL DISTRIBUTION WIDTH 12.9 % (11.5-14.5); WHITE BLOOD COUNT 6.6 10^3/ul (4.8-10.8)
[2017-06-03] MEDS: APIXABAN 5 MG TABLET PO SCH ×2 (08:18→20:51)
[2017-06-03] MEDS: METOPROLOL (XL) 50 MG TAB PO SCH ×2 (08:19→20:51)
[2017-06-03] MEDS: traMADol 50 MG TAB PO SCH ×2 (08:19→20:52)
[2017-06-03] MEDS: LISINOPRIL 5 MG TAB PO SCH (08:19)
[2017-06-03] MEDS: ONDANSETRON 4 MG INJ IV PRN (08:23)
[2017-06-03 08:39] LABS: CALCIUM 9.4 mg/dl (8.4-10.2); CREATININE 0.85 mg/dl (0.44-1.00); POTASSIUM 3.9 mmol/L (3.5-5.1)
--- NOTE | 2017-06-03 10:38 | CONS ---
Date/Time of Note Date/Time of Note DATE: 06/03/17 TIME: 10:37 Assessment/Plan Assessment/Plan Additional Assessment/Plan 1. Atrial flutter/AF with rapid ventricular response.- now improved HR - no w in sinus. 2. Hypertension- better controlled, con't to adjust rx as needed. 3. Shortness of breath, assess for congestive heart failure- improved with gentle diuresis. NO CP now. 4. Diabetes mellitus- on meds, keep euglycemic. 5. Suppressed TSH. 6. Cardiomyopathy-EF 40% by echo 03/2017 Consultation Date/Type/Reason Admit Date/Time May 30, 2017 at 20:36 Initial Consult Date Type of Consultation: cardiology Referring Provider: EDDIE MOLINA MD 24 HR Interval Summary Free Text/Dictation No acute events - pt had some nausea. No CP. In sinus now. ROS: No fever, no chills, no nausea, no vomiting, no diarrhea/constipation No recent weight changes No chest pain, no PND, no orthopnea No dizziness, blurred vision No thirst, no heat or cold intolerance Exam/Review of Systems Vital Signs Vitals Vital Signs Date Time Temp Pulse Resp B/P Pulse Ox O2 Delivery O2 Flow Rate FiO2 06/03/17 08:09 66 06/03/17 07:25 97.7 17 143/70 96 06/02/17 14:27 Room Air 05/31/17 20:00 2.0 Intake and Output 06/02/17 06/02/17 06/03/17 14:59 22:59 06:59 Intake Total 700 ml Balance 700 ml Exam General: WN/WD/NAD, AOx 3 [place] HEENT: Unicetric/atraumatic/EOMI (follows commands) NECK: JVD elevated, no thyromegaly Lymph: no lymphadenopathy HEART: regular with no S3, II/ systolic murmur at apex LUNGS: Coarse sounds ABD: soft, NT, ND, +BS : Intact Neuro: non focal SKIN: chronic changes EXT: trace edema Results Result Diagram: 06/03/1772506/03/17725 Results 24 hrs Laboratory Tests Test 06/02/17 11:53 06/02/17 17:41 06/02/17 20:54 06/03/17 07:26 Bedside Glucose 251 H 143 166 White Blood Count 6.6 Red Blood Count 4.37 Hemoglobin 14.1 Hematocrit 41.1 Mean Corpuscular Volume 94.1 Mean Corpuscular Hemoglobin 32.3 Mean Corpuscular Hemoglobin Concent 34.3 Red Cell Distribution Width 12.9 Platelet Count 155 Mean Platelet Volume 12.5 H Neutrophils % 60.8 Lymphocytes % 27.1 Monocytes % 9.7 Eosinophils % 1.7 Basophils % 0.5 Nucleated Red Blood Cells % 0.0 Neutrophils # 4.0 Lymphocytes # 1.8 Monocytes # 0.6 Eosinophils # 0.1 Basophils # 0.0 Nucleated Red Blood Cells # 0.0 Sodium Level 139 Potassium Level 3.9 Chloride Level 100 Carbon Dioxide Level 28 Anion Gap 15 Blood Urea Nitrogen 15 Creatinine 0.85 Glucose Level 120 Calcium Level 9.4 Test 06/03/17 08:13 Bedside Glucose 124 Medications Medications Current Medications Acetaminophen (Tylenol Tab) 650 mg Q6H PRN PO PAIN AND OR ELEVATED TEMP Last administered on 05/31/17 14:15; Admin Dose 650 MG; Start 05/30/17 at 23:00 Ondansetron HCl 4 mg 4 mg Q6H PRN IV NAUSEA AND/OR VOMITING Last administered on 06/03/17 08:23; Admin Dose 4 MG; Start 05/30/17 at 23:00 Diltiazem HCl (Cardizem-D5W 125 Mg/125 ml Drip) 125 ml @ 5 mls/hr TITRATE PRN IV PALPITATION Last administered on 05/31/17 18:26; Admin Dose 5 MLS/HR; Start 05/30/17 at 23:30 Miscellaneous Information 1 ea NOTE XX ; Start 05/30/17 at 23:45 Glucose (Glutose) 15 gm Q15M PRN PO DECREASED GLUCOSE; Start 05/30/17 at 23:45 Glucose (Glutose) 22.5 gm Q15M PRN PO DECREASED GLUCOSE; Start 05/30/17 at 23: 45 Dextrose (D50w Syringe) 25 ml Q15M PRN IV DECREASED GLUCOSE; Start 05/30/17 at 23:45 Dextrose (D50w Syringe) 50 ml Q15M PRN IV DECREASED GLUCOSE; Start 05/30/17 at 23:45 Glucagon (Glucagen) 1 mg Q15M PRN IM DECREASED GLUCOSE; Start 05/30/17 at 23: 45 Glucose (Glutose) 15 gm Q15M PRN BUCCAL DECREASED GLUCOSE; Start 05/30/17 at 23:45 Apixaban (Eliquis) 2.5 mg BID PO Last administered on 06/03/17 08:18; Admin Dose 2.5 MG; Start 05/31/17 at 00:46 Tramadol HCl (Ultram) 50 mg BID PO Last administered on 06/03/17 08:19; Admin Dose 50 MG; Start 05/31/17 at 12:00 Insulin Glargine (Lantus) 7 unit DAILY@20 SC Last administered on 06/02/17 21 :05; Admin Dose 7 UNIT; Start 05/31/17 at 20:00 Diagnostic Test (Pha) (Accu-Chek) 1 ea 02 XX Last administered on 06/02/17 02 :00; Admin Dose 1 EA; Start 06/01/17 at 02:00 Pantoprazole (Protonix Tab) 40 mg BID@06,18 PO Last administered on 06/03/17 06:25; Admin Dose 40 MG; Start 05/31/17 at 18:00 Phenol (Cepastat Lozenge) 1 lozenge Q1H PRN MT COUGH; Start 05/31/17 at 17:30 Lisinopril (Zestril) 2.5 mg DAILY PO Last administered on 06/03/17 08:19; Admin Dose 2.5 MG; Start 06/02/17 at 09:00 Metoprolol Succinate (Toprol Xl) 50 mg BID PO Last administered on 06/03/17 08:19; Admin Dose 50 MG; Start 06/02/17 at 21:00 Diltiazem HCl (Cardizem Iv) 5 mg Q4 PRN IV PALPITATION; Start 06/02/17 at 18: 30 CORNEL MORAES MD Jun 03, 2017 10:38
--- NOTE | 2017-06-03 14:34 | RADRPT ---
Vent Rate: 103 bpm RR Interval: 0 msec MN Interval: 0 msec QRS Duration: 82 msec QT Interval: 330 msec QTC Interval: 432 msec P-R-T Stevenson: 0 - 23 - -83 degrees Atrial flutter with variable AV block with premature ventricular or aberrantly conducted complexes Nonspecific ST and T wave abnormality Abnormal ECG Electronically Signed By: Med Ramos [id number]
--- NOTE | 2017-06-03 17:19 | PN ---
Date/Time of Note Date/Time of Note DATE: 06/03/17 TIME: 17:15 Assessment/Plan VTE Prophylaxis VTE Prophylaxis Intervention: SCD's Lines/Catheters IV [facility]ter Type (from [facility]): Saline Lock Urinary Cath still in place: No Assessment/Plan Chief Complaint/Hosp Course Patient is currently in sinus rhythm, patient complains of shortness of breath on exertion. Problems: Assessment/Plan - Atrial flutter/AF with rapid ventricular response. Dr. Fontenot is following in cardiology consultation. - Hypertension - Diabetes mellitus type 2 - Cardiomyopathy-EF 40% by echo 03/2017 Further recommendations based on clinical course. Plan of care discussed with Dr. Tee. Exam/Review of Systems Vital Signs Vitals Vital Signs Date Time Temp Pulse Resp B/P Pulse Ox O2 Delivery O2 Flow Rate FiO2 06/03/17 16:02 67 06/03/17 15:35 97.6 18 132/58 96 06/02/17 14:27 Room Air 05/31/17 20:00 2.0 Intake and Output 06/02/17 06/02/17 06/03/17 14:59 22:59 06:59 Intake Total 700 ml Balance 700 ml Exam Constitutional: alert, oriented Head: normocephalic Neck: supple Respiratory: normal air movement Cardiovascular: nl pulses, regular rate and rhythm Gastrointestinal: non-tender, soft Musculoskeletal: nl extremities to inspection Extremities: normal pulses Results Result Diagram: 06/03/1772506/03/17 07 Results 24 hrs Laboratory Tests Test 06/02/17 17:41 06/02/17 20:54 06/03/17 07:26 06/03/17 08:13 Bedside Glucose 143 166 124 White Blood Count 6.6 Red Blood Count 4.37 Hemoglobin 14.1 Hematocrit 41.1 Mean Corpuscular Volume 94.1 Mean Corpuscular Hemoglobin 32.3 Mean Corpuscular Hemoglobin Concent 34.3 Red Cell Distribution Width 12.9 Platelet Count 155 Mean Platelet Volume 12.5 H Neutrophils % 60.8 Lymphocytes % 27.1 Monocytes % 9.7 Eosinophils % 1.7 Basophils % 0.5 Nucleated Red Blood Cells % 0.0 Neutrophils # 4.0 Lymphocytes # 1.8 Monocytes # 0.6 Eosinophils # 0.1 Basophils # 0.0 Nucleated Red Blood Cells # 0.0 Sodium Level 139 Potassium Level 3.9 Chloride Level 100 Carbon Dioxide Level 28 Anion Gap 15 Blood Urea Nitrogen 15 Creatinine 0.85 Glucose Level 120 Calcium Level 9.4 Test 06/03/17 12:38 Bedside Glucose 180 Medications Medications Current Medications Acetaminophen (Tylenol Tab) 650 mg Q6H PRN PO PAIN AND OR ELEVATED TEMP Last administered on 05/31/17 14:15; Admin Dose 650 MG; Start 05/30/17 at 23:00 Ondansetron HCl 4 mg 4 mg Q6H PRN IV NAUSEA AND/OR VOMITING Last administered on 06/03/17 08:23; Admin Dose 4 MG; Start 05/30/17 at 23:00 Diltiazem HCl (Cardizem-D5W 125 Mg/125 ml Drip) 125 ml @ 5 mls/hr TITRATE PRN IV PALPITATION Last administered on 05/31/17 18:26; Admin Dose 5 MLS/HR; Start 05/30/17 at 23:30 Miscellaneous Information 1 ea NOTE XX ; Start 05/30/17 at 23:45 Glucose (Glutose) 15 gm Q15M PRN PO DECREASED GLUCOSE; Start 05/30/17 at 23:45 Glucose (Glutose) 22.5 gm Q15M PRN PO DECREASED GLUCOSE; Start 05/30/17 at 23: 45 Dextrose (D50w Syringe) 25 ml Q15M PRN IV DECREASED GLUCOSE; Start 05/30/17 at 23:45 Dextrose (D50w Syringe) 50 ml Q15M PRN IV DECREASED GLUCOSE; Start 05/30/17 at 23:45 Glucagon (Glucagen) 1 mg Q15M PRN IM DECREASED GLUCOSE; Start 05/30/17 at 23: 45 Glucose (Glutose) 15 gm Q15M PRN BUCCAL DECREASED GLUCOSE; Start 05/30/17 at 23:45 Apixaban (Eliquis) 2.5 mg BID PO Last administered on 06/03/17 08:18; Admin Dose 2.5 MG; Start 05/31/17 at 00:46 Tramadol HCl (Ultram) 50 mg BID PO Last administered on 06/03/17 08:19; Admin Dose 50 MG; Start 05/31/17 at 12:00 Insulin Glargine (Lantus) 7 unit DAILY@20 SC Last administered on 06/02/17 21 :05; Admin Dose 7 UNIT; Start 05/31/17 at 20:00 Diagnostic Test (Pha) (Accu-Chek) 1 ea 02 XX Last administered on 06/02/17 02 :00; Admin Dose 1 EA; Start 06/01/17 at 02:00 Pantoprazole (Protonix Tab) 40 mg BID@,18 PO Last administered on 06/03/17 06:25; Admin Dose 40 MG; Start 05/31/17 at 18:00 Phenol (Cepastat Lozenge) 1 lozenge Q1H PRN MT COUGH; Start 05/31/17 at 17:30 Lisinopril (Zestril) 2.5 mg DAILY PO Last administered on 06/03/17 08:19; Admin Dose 2.5 MG; Start 06/02/17 at 09:00 Metoprolol Succinate (Toprol Xl) 50 mg BID PO Last administered on 06/03/17 08:19; Admin Dose 50 MG; Start 06/02/17 at 21:00 Diltiazem HCl (Cardizem Iv) 5 mg Q4 PRN IV PALPITATION; Start 06/02/17 at 18: 30 MARILYN LEE Jun 03, 2017 17:19
[2017-06-03] MEDS: INSULIN GLARGINE [LANtus] 3 ML PEN SC SCH (22:10)
[2017-06-04] VITALS (13 sets, daily range): BP systolic 106–152; BP diastolic 60–78; PULSE 69–130; RESP 16–20
[2017-06-04] MEDS: ACCU-CHEK XX SCH (02:00)
[2017-06-04] MEDS: FUROSEMIDE 20 MG INJ IV SCH ×2 (06:49→18:29)
[2017-06-04] MEDS: PANTOPRAZOLE (EC) 40 MG TAB PO SCH ×2 (06:49→18:29)
[2017-06-04] MEDS: INSULIN ASPART [NOVOLOG] 3 ML PEN SC SCH ×7 (07:55→22:30)
[2017-06-04] MEDS: METOPROLOL (XL) 50 MG TAB PO SCH ×2 (08:34→22:24)
[2017-06-04] MEDS: traMADol 50 MG TAB PO SCH ×2 (08:34→22:29)
[2017-06-04] MEDS: LISINOPRIL 5 MG TAB PO SCH (08:34)
[2017-06-04] MEDS: APIXABAN 5 MG TABLET PO SCH ×2 (08:34→22:25)
[2017-06-04 08:41] LABS: BASOPHIL # 0.1 10^3/ul (0.0-0.1); BASOPHILS % 0.8 % (0.0-2.0); EOSINOPHILS # 0.2 10^3/ul (0.0-0.5); EOSINOPHILS % 2.7 % (0.0-7.0); HEMATOCRIT 42.2 % (37.0-47.0); HEMOGLOBIN 14.2 g/dl (12.0-16.0); LYMPHOCYTES # 2.3 10^3/ul (0.8-2.9); LYMPHOCYTES % 36.2 % (15.0-51.0); MEAN CORPUSCULAR HEMOGLOBIN 31.9 pg (29.0-33.0); MEAN CORPUSCULAR HGB CONC 33.6 g/dl (32.0-37.0); MEAN CORPUSCULAR VOLUME 94.8 fl (82.0-101.0); MEAN PLATELET VOLUME 12.7 fl (7.4-10.4); MONOCYTE # 0.8 10^3/ul (0.3-0.9); MONOCYTES % 12.3 % (0.0-11.0); NEUTROPHILS % 47.7 % (39.0-77.0); PLATELET COUNT 160 10^3/UL (140-415); RED BLOOD COUNT 4.45 10^6/ul (4.20-5.40); RED CELL DISTRIBUTION WIDTH 13.1 % (11.5-14.5); WHITE BLOOD COUNT 6.3 10^3/ul (4.8-10.8)
[2017-06-04] MEDS: ONDANSETRON 4 MG INJ IV PRN (09:07)
[2017-06-04] MEDS: DILTIAZEM 25 MG INJ IV PRN (09:07)
[2017-06-04 09:21] LABS: CALCIUM 9.7 mg/dl (8.4-10.2); CREATININE 0.97 mg/dl (0.44-1.00); POTASSIUM 4.1 mmol/L (3.5-5.1)
[2017-06-04] MEDS ORDERED: DIGOXIN 500 MCG INJ IV ONE (10:00)
[2017-06-04] MEDS: DILTIAZEM 30 MG TAB PO SCH ×3 (11:09→22:25)
--- NOTE | 2017-06-04 14:19 | CONS ---
Date/Time of Note Date/Time of Note DATE: 06/04/17 TIME: 14:14 Assessment/Plan Assessment/Plan Chief Complaint/Hosp Course IMPRESSION: 1. Atrial flutter/AF with rapid ventricular response.- now improved HR 2. Hypertension. 3. Shortness of breath, assess for congestive heart failure. 4. Diabetes mellitus. 5. Suppressed TSH. 6. Cardiomyopathy-EF 40% by echo 03/2017 Recc: -Tele -Continue BB and will start CCB in attempt to get synergism between the medications and improved HR control -Continue eliquis -Continue daily lasix and follow volume status closely -Continue ACEI afterload reduction -Give IVP dose of digoxin Problems: Consultation Date/Type/Reason Admit Date/Time May 30, 2017 at 20:36 Initial Consult Date 05/31/2017 Type of Consultation: cardiology Reason for Consultation AFL Referring Provider: EDDIE MOLINA MD Exam/Review of Systems Vital Signs Vitals Vital Signs Date Time Temp Pulse Resp B/P Pulse Ox O2 Delivery O2 Flow Rate FiO2 06/04/17 12:09 76 06/04/17 11:54 98.1 20 111/78 97 06/02/17 14:27 Room Air 05/31/17 20:00 2.0 Intake and Output 06/03/17 06/03/17 06/04/17 15:00 23:00 07:00 Intake Total 700 ml 300 ml Balance 700 ml 300 ml Exam Review of Systems: CONSTITUTIONAL: No fevers, chills. PULMONARY: No sob CARDIOVASCULAR: No chest pain/palpitations GASTROINTESTINAL: No nausea/vomiting. GENITOURINARY: No hematuria/dysuria. MUSCULOSKELETAL: No myagias/arthalgias. PSYCHIATRIC: The patient denies depression. NEUROLOGIC: No weakness Constitutional: alert, oriented Psych: no complaints Head: normocephalic ENMT: mucosa pink and moist Neck: jvd, supple Respiratory: diminished breath sounds (at bases/B) Cardiovascular: regular rate and rhythm Gastrointestinal: non-tender, soft Musculoskeletal: muscle tone (normal) Extremities: edema (trace/B) Neurological: lethargic Results Result Diagram: 06/04/17 0755 06/04/17 0755 Results 24 hrs Laboratory Tests Test 06/03/17 16:58 06/03/17 20:44 06/04/17 07:55 06/04/17 08:28 Bedside Glucose 199 114 138 White Blood Count 6.3 Red Blood Count 4.45 Hemoglobin 14.2 Hematocrit 42.2 Mean Corpuscular Volume 94.8 Mean Corpuscular Hemoglobin 31.9 Mean Corpuscular Hemoglobin Concent 33.6 Red Cell Distribution Width 13.1 Platelet Count 160 Mean Platelet Volume 12.7 H Neutrophils % 47.7 Lymphocytes % 36.2 Monocytes % 12.3 H Eosinophils % 2.7 Basophils % 0.8 Nucleated Red Blood Cells % 0.0 Neutrophils # 3.0 Lymphocytes # 2.3 Monocytes # 0.8 Eosinophils # 0.2 Basophils # 0.1 Nucleated Red Blood Cells # 0.0 Sodium Level 140 Potassium Level 4.1 Chloride Level 98 Carbon Dioxide Level 32 H Anion Gap 14 Blood Urea Nitrogen 18 Creatinine 0.97 Glucose Level 136 Calcium Level 9.7 Test 06/04/17 12:38 Bedside Glucose 258 H Medications Medications Current Medications Acetaminophen (Tylenol Tab) 650 mg Q6H PRN PO PAIN AND OR ELEVATED TEMP Last administered on 05/31/17 14:15; Admin Dose 650 MG; Start 05/30/17 at 23:00 Ondansetron HCl 4 mg 4 mg Q6H PRN IV NAUSEA AND/OR VOMITING Last administered on 06/04/17 09:07; Admin Dose 4 MG; Start 05/30/17 at 23:00 Diltiazem HCl (Cardizem-D5W 125 Mg/125 ml Drip) 125 ml @ 5 mls/hr TITRATE PRN IV PALPITATION Last administered on 05/31/17 18:26; Admin Dose 5 MLS/HR; Start 05/30/17 at 23:30 Miscellaneous Information 1 ea NOTE XX ; Start 05/30/17 at 23:45 Glucose (Glutose) 15 gm Q15M PRN PO DECREASED GLUCOSE; Start 05/30/17 at 23:45 Glucose (Glutose) 22.5 gm Q15M PRN PO DECREASED GLUCOSE; Start 05/30/17 at 23: 45 Dextrose (D50w Syringe) 25 ml Q15M PRN IV DECREASED GLUCOSE; Start 05/30/17 at 23:45 Dextrose (D50w Syringe) 50 ml Q15M PRN IV DECREASED GLUCOSE; Start 05/30/17 at 23:45 Glucagon (Glucagen) 1 mg Q15M PRN IM DECREASED GLUCOSE; Start 05/30/17 at 23: 45 Glucose (Glutose) 15 gm Q15M PRN BUCCAL DECREASED GLUCOSE; Start 05/30/17 at 23:45 Apixaban (Eliquis) 2.5 mg BID PO Last administered on 06/04/17 08:34; Admin Dose 2.5 MG; Start 05/31/17 at 00:46 Tramadol HCl (Ultram) 50 mg BID PO Last administered on 06/04/17 08:34; Admin Dose 50 MG; Start 05/31/17 at 12:00 Insulin Glargine (Lantus) 7 unit DAILY@20 SC Last administered on 06/03/17 22 :10; Admin Dose 7 UNIT; Start 05/31/17 at 20:00 Diagnostic Test (Pha) (Accu-Chek) 1 ea 02 XX Last administered on 06/02/17 02 :00; Admin Dose 1 EA; Start 06/01/17 at 02:00 Pantoprazole (Protonix Tab) 40 mg BID@06,18 PO Last administered on 06/04/17 06:49; Admin Dose 40 MG; Start 05/31/17 at 18:00 Phenol (Cepastat Lozenge) 1 lozenge Q1H PRN MT COUGH; Start 05/31/17 at 17:30 Lisinopril (Zestril) 2.5 mg DAILY PO Last administered on 06/04/17 08:34; Admin Dose 2.5 MG; Start 06/02/17 at 09:00 Metoprolol Succinate (Toprol Xl) 50 mg BID PO Last administered on 06/04/17 08:34; Admin Dose 50 MG; Start 06/02/17 at 21:00 Diltiazem HCl (Cardizem Iv) 5 mg Q4 PRN IV PALPITATION Last administered on 09:07; Admin Dose 5 MG; Start 06/02/17 at 18:30 Diltiazem HCl (Cardizem) 30 mg Q8 PO Last administered on 06/04/17 11:09; Admin Dose 30 MG; Start 06/04/17 at 10:00 RADHA STEPHEN 22, 2017 14:19
--- NOTE | 2017-06-04 16:36 | PN ---
Date/Time of Note Date/Time of Note DATE: 06/04/17 TIME: 16:33 Assessment/Plan VTE Prophylaxis VTE Prophylaxis Intervention: LMWH Lines/Catheters [facility]from [facility] Saline Lock Urinary Cath still in place: No Assessment/Plan Chief Complaint/Hosp Course Patient is currently in atrial flutter at the rate of 140, 2 new Cardizem, cardiology recommendations telemetry monitoring Assessment/Plan - Atrial flutter/AF with rapid ventricular response. Dr. Fontenot is following in cardiology consultation. - Hypertension - Diabetes mellitus type 2, myoglobin A1c is is 9.1. Continue Lantus and pre- meal NovoLog. - Cardiomyopathy-EF 40% by echo 03/2017 Further recommendations based on clinical course. Plan of care discussed with Dr. Tee. Problems: Exam/Review of Systems Vital Signs Vitals Vital Signs Date Time Temp Pulse Resp B/P Pulse Ox O2 Delivery O2 Flow Rate FiO2 06/04/17 15:28 98.1 71 18 106/60 95 06/02/17 14:27 Room Air 05/31/17 20:00 2.0 Intake and Output 06/03/17 06/03/17 06/04/17 15:00 23:00 07:00 Intake Total 700 ml 300 ml Balance 700 ml 300 ml Exam Constitutional: alert, oriented Head: normocephalic Neck: supple Respiratory: normal air movement Cardiovascular: nl pulses, regular rate and rhythm Gastrointestinal: non-tender, soft Musculoskeletal: nl extremities to inspection Extremities: normal pulses Results Result Diagram: 06/04/17 0755 06/04/17 0755 Results 24 hrs Laboratory Tests Test 06/03/17 16:58 06/03/17 20:44 06/04/17 07:55 06/04/17 08:28 Bedside Glucose 199 114 138 White Blood Count 6.3 Red Blood Count 4.45 Hemoglobin 14.2 Hematocrit 42.2 Mean Corpuscular Volume 94.8 Mean Corpuscular Hemoglobin 31.9 Mean Corpuscular Hemoglobin Concent 33.6 Red Cell Distribution Width 13.1 Platelet Count 160 Mean Platelet Volume 12.7 H Neutrophils % 47.7 Lymphocytes % 36.2 Monocytes % 12.3 H Eosinophils % 2.7 Basophils % 0.8 Nucleated Red Blood Cells % 0.0 Neutrophils # 3.0 Lymphocytes # 2.3 Monocytes # 0.8 Eosinophils # 0.2 Basophils # 0.1 Nucleated Red Blood Cells # 0.0 Sodium Level 140 Potassium Level 4.1 Chloride Level 98 Carbon Dioxide Level 32 H Anion Gap 14 Blood Urea Nitrogen 18 Creatinine 0.97 Glucose Level 136 Calcium Level 9.7 Test 06/04/17 12:38 Bedside Glucose 258 H Medications Medications Current Medications Acetaminophen (Tylenol Tab) 650 mg Q6H PRN PO PAIN AND OR ELEVATED TEMP Last administered on 05/31/17 14:15; Admin Dose 650 MG; Start 05/30/17 at 23:00 Ondansetron HCl 4 mg 4 mg Q6H PRN IV NAUSEA AND/OR VOMITING Last administered on 06/04/17 09:07; Admin Dose 4 MG; Start 05/30/17 at 23:00 Diltiazem HCl (Cardizem-D5W 125 Mg/125 ml Drip) 125 ml @ 5 mls/hr TITRATE PRN IV PALPITATION Last administered on 05/31/17 18:26; Admin Dose 5 MLS/HR; Start 05/30/17 at 23:30 Miscellaneous Information 1 ea NOTE XX ; Start 05/30/17 at 23:45 Glucose (Glutose) 15 gm Q15M PRN PO DECREASED GLUCOSE; Start 05/30/17 at 23:45 Glucose (Glutose) 22.5 gm Q15M PRN PO DECREASED GLUCOSE; Start 05/30/17 at 23: 45 Dextrose (D50w Syringe) 25 ml Q15M PRN IV DECREASED GLUCOSE; Start 05/30/17 at 23:45 Dextrose (D50w Syringe) 50 ml Q15M PRN IV DECREASED GLUCOSE; Start 05/30/17 at 23:45 Glucagon (Glucagen) 1 mg Q15M PRN IM DECREASED GLUCOSE; Start 05/30/17 at 23: 45 Glucose (Glutose) 15 gm Q15M PRN BUCCAL DECREASED GLUCOSE; Start 05/30/17 at 23:45 Apixaban (Eliquis) 2.5 mg BID PO Last administered on 06/04/17 08:34; Admin Dose 2.5 MG; Start 05/31/17 at 00:46 Tramadol HCl (Ultram) 50 mg BID PO Last administered on 06/04/17 08:34; Admin Dose 50 MG; Start 05/31/17 at 12:00 Insulin Glargine (Lantus) 7 unit DAILY@20 SC Last administered on 06/03/17 22 :10; Admin Dose 7 UNIT; Start 05/31/17 at 20:00 Diagnostic Test (Pha) (Accu-Chek) 1 ea 02 XX Last administered on 06/02/17 02 :00; Admin Dose 1 EA; Start 06/01/17 at 02:00 Pantoprazole (Protonix Tab) 40 mg BID@06,18 PO Last administered on 06/04/17 06:49; Admin Dose 40 MG; Start 05/31/17 at 18:00 Phenol (Cepastat Lozenge) 1 lozenge Q1H PRN MT COUGH; Start 05/31/17 at 17:30 Lisinopril (Zestril) 2.5 mg DAILY PO Last administered on 06/04/17 08:34; Admin Dose 2.5 MG; Start 06/02/17 at 09:00 Metoprolol Succinate (Toprol Xl) 50 mg BID PO Last administered on 06/04/17 08:34; Admin Dose 50 MG; Start 06/02/17 at 21:00 Diltiazem HCl (Cardizem Iv) 5 mg Q4 PRN IV PALPITATION Last administered on 09:07; Admin Dose 5 MG; Start 06/02/17 at 18:30 Diltiazem HCl (Cardizem) 30 mg Q8 PO Last administered on 06/04/17 14:43; Admin Dose 30 MG; Start 06/04/17 at 10:00 MARILYN LEE Jun 04, 2017 16:36
[2017-06-04] MEDS: INSULIN GLARGINE [LANtus] 3 ML PEN SC SCH (22:28)
[2017-06-05] VITALS (11 sets, daily range): BP systolic 116–130; BP diastolic 67–79; PULSE 71–98; RESP 17–20
[2017-06-05] MEDS: ACCU-CHEK XX SCH (02:00)
[2017-06-05] MEDS: DILTIAZEM 30 MG TAB PO SCH ×3 (06:38→21:17)
[2017-06-05] MEDS: PANTOPRAZOLE (EC) 40 MG TAB PO SCH ×2 (06:38→17:32)
[2017-06-05] MEDS: FUROSEMIDE 20 MG INJ IV SCH ×2 (06:38→17:33)
[2017-06-05 07:41] LABS: BASOPHIL # 0.1 10^3/ul (0.0-0.1); BASOPHILS % 0.7 % (0.0-2.0); EOSINOPHILS # 0.2 10^3/ul (0.0-0.5); EOSINOPHILS % 2.3 % (0.0-7.0); HEMATOCRIT 42.8 % (37.0-47.0); HEMOGLOBIN 14.3 g/dl (12.0-16.0); LYMPHOCYTES # 2.4 10^3/ul (0.8-2.9); LYMPHOCYTES % 32.1 % (15.0-51.0); MEAN CORPUSCULAR HGB CONC 33.4 g/dl (32.0-37.0); MEAN CORPUSCULAR VOLUME 95.7 fl (82.0-101.0); MEAN PLATELET VOLUME 12.6 fl (7.4-10.4); MONOCYTE # 0.9 10^3/ul (0.3-0.9); NEUTROPHIL # 3.9 10^3/ul (1.6-7.5); NEUTROPHILS % 52.6 % (39.0-77.0); PLATELET COUNT 163 10^3/UL (140-415); RED BLOOD COUNT 4.47 10^6/ul (4.20-5.40); RED CELL DISTRIBUTION WIDTH 12.8 % (11.5-14.5); WHITE BLOOD COUNT 7.3 10^3/ul (4.8-10.8)
[2017-06-05 08:03] LABS: CALCIUM 9.4 mg/dl (8.4-10.2); CREATININE 1.08 mg/dl (0.44-1.00); POTASSIUM 4.3 mmol/L (3.5-5.1)
[2017-06-05] MEDS: APIXABAN 5 MG TABLET PO SCH ×2 (09:12→21:18)
[2017-06-05] MEDS: METOPROLOL (XL) 50 MG TAB PO SCH ×2 (09:12→21:17)
[2017-06-05] MEDS: LISINOPRIL 5 MG TAB PO SCH (09:12)
[2017-06-05] MEDS: INSULIN ASPART [NOVOLOG] 3 ML PEN SC SCH ×7 (09:30→21:00)
[2017-06-05] MEDS: traMADol 50 MG TAB PO SCH ×2 (09:33→21:16)
--- NOTE | 2017-06-05 12:21 | CONS ---
Date/Time of Note Date/Time of Note DATE: 06/05/17 TIME: 12:19 Assessment/Plan Assessment/Plan Additional Assessment/Plan 1. Atrial flutter/AF with rapid ventricular response.- now improved HR - no w in sinus. rate controlled. 2. Hypertension- better controlled, con't to adjust rx as needed. In good range now. 3. Shortness of breath, assess for congestive heart failure- improved with gentle diuresis. NO CP now. 4. Diabetes mellitus- on meds, keep euglycemic. 5. Suppressed TSH. 6. Cardiomyopathy-EF 40% by echo 03/2017- no indication for ICD. Consultation Date/Type/Reason Admit Date/Time May 30, 2017 at 20:36 Type of Consultation: cardiology Referring Provider: EDDIE MOLINA MD 24 HR Interval Summary Free Text/Dictation No acute vents - pt in better spirits - no CP now - will monitor. Family at bedside - happy with care. ROS: No fever, no chills, no nausea, no vomiting, no diarrhea/constipation No recent weight changes No chest pain, no PND, no orthopnea No dizziness, blurred vision No thirst, no heat or cold intolerance Exam/Review of Systems Vital Signs Vitals Vital Signs Date Time Temp Pulse Resp B/P Pulse Ox O2 Delivery O2 Flow Rate FiO2 06/05/17 11:42 98.6 69 18 130/67 94 06/02/17 14:27 Room Air Intake and Output 06/04/17 06/04/17 06/05/17 15:00 23:00 07:00 Intake Total 810 ml Balance 810 ml Exam General: WN/WD/NAD, AOx 3 [place] HEENT: Unicetric/atraumatic/EOMI (follow commands) NECK: JVD elevated, no thyromegaly Lymph: no lymphadenopathy HEART: regular with no S3, II/ systolic murmur at apex LUNGS: Coarse sounds ABD: soft, NT, ND, +BS : Intact Neuro: non focal SKIN: chronic changes EXT: trace edema Results Result Diagram: 06/05/17 0648 06/05/17 0648 Results 24 hrs Laboratory Tests Test 06/04/17 12:38 06/04/17 17:31 06/04/17 22:06 06/05/17 02:09 Bedside Glucose 258 H 96 199 170 Test 06/05/17 06:48 06/05/17 09:07 White Blood Count 7.3 Red Blood Count 4.47 Hemoglobin 14.3 Hematocrit 42.8 Mean Corpuscular Volume 95.7 Mean Corpuscular Hemoglobin 32.0 Mean Corpuscular Hemoglobin Concent 33.4 Red Cell Distribution Width 12.8 Platelet Count 163 Mean Platelet Volume 12.6 H Neutrophils % 52.6 Lymphocytes % 32.1 Monocytes % 12.0 H Eosinophils % 2.3 Basophils % 0.7 Nucleated Red Blood Cells % 0.0 Neutrophils # 3.9 Lymphocytes # 2.4 Monocytes # 0.9 Eosinophils # 0.2 Basophils # 0.1 Nucleated Red Blood Cells # 0.0 Sodium Level 139 Potassium Level 4.3 Chloride Level 97 Carbon Dioxide Level 32 H Anion Gap 14 Blood Urea Nitrogen 26 H Creatinine 1.08 H Glucose Level 165 Calcium Level 9.4 Bedside Glucose 221 H Medications Medications Current Medications Acetaminophen (Tylenol Tab) 650 mg Q6H PRN PO PAIN AND OR ELEVATED TEMP Last administered on 05/31/17 14:15; Admin Dose 650 MG; Start 05/30/17 at 23:00 Ondansetron HCl 4 mg 4 mg Q6H PRN IV NAUSEA AND/OR VOMITING Last administered on 06/04/17 09:07; Admin Dose 4 MG; Start 05/30/17 at 23:00 Diltiazem HCl (Cardizem-D5W 125 Mg/125 ml Drip) 125 ml @ 5 mls/hr TITRATE PRN IV PALPITATION Last administered on 05/31/17 18:26; Admin Dose 5 MLS/HR; Start 05/30/17 at 23:30 Miscellaneous Information 1 ea NOTE XX ; Start 05/30/17 at 23:45 Glucose (Glutose) 15 gm Q15M PRN PO DECREASED GLUCOSE; Start 05/30/17 at 23:45 Glucose (Glutose) 22.5 gm Q15M PRN PO DECREASED GLUCOSE; Start 05/30/17 at 23: 45 Dextrose (D50w Syringe) 25 ml Q15M PRN IV DECREASED GLUCOSE; Start 05/30/17 at 23:45 Dextrose (D50w Syringe) 50 ml Q15M PRN IV DECREASED GLUCOSE; Start 05/30/17 at 23:45 Glucagon (Glucagen) 1 mg Q15M PRN IM DECREASED GLUCOSE; Start 05/30/17 at 23: 45 Glucose (Glutose) 15 gm Q15M PRN BUCCAL DECREASED GLUCOSE; Start 05/30/17 at 23:45 Apixaban (Eliquis) 2.5 mg BID PO Last administered on 06/05/17 09:12; Admin Dose 2.5 MG; Start 05/31/17 at 00:46 Tramadol HCl (Ultram) 50 mg BID PO Last administered on 06/05/17 09:33; Admin Dose 50 MG; Start 05/31/17 at 12:00 Diagnostic Test (Pha) (Accu-Chek) 1 ea 02 XX Last administered on 06/02/17 02 :00; Admin Dose 1 EA; Start 06/01/17 at 02:00 Pantoprazole (Protonix Tab) 40 mg BID@06,18 PO Last administered on 06/05/17 06:38; Admin Dose 40 MG; Start 05/31/17 at 18:00 Phenol (Cepastat Lozenge) 1 lozenge Q1H PRN MT COUGH; Start 05/31/17 at 17:30 Lisinopril (Zestril) 2.5 mg DAILY PO Last administered on 06/05/17 09:12; Admin Dose 2.5 MG; Start 06/02/17 at 09:00 Metoprolol Succinate (Toprol Xl) 50 mg BID PO Last administered on 06/05/17 09:12; Admin Dose 50 MG; Start 06/02/17 at 21:00 Diltiazem HCl (Cardizem Iv) 5 mg Q4 PRN IV PALPITATION Last administered on 09:07; Admin Dose 5 MG; Start 06/02/17 at 18:30 Diltiazem HCl (Cardizem) 30 mg Q8 PO Last administered on 06/05/17 06:38; Admin Dose 30 MG; Start 06/04/17 at 10:00 Insulin Glargine (Lantus) 15 unit DAILY@20 SC Last administered on 06/04/17 22:28; Admin Dose 15 UNIT; Start 06/04/17 at 20:00 CORNEL MORAES MD Jun 05, 2017 12:21
--- NOTE | 2017-06-05 15:10 | PN ---
Date/Time of Note Date/Time of Note DATE: 06/05/17 TIME: 15:09 Assessment/Plan Lines/Catheters IV Catheter Type (from [facility]): Saline Lock Urinary Cath still in place: No Assessment/Plan Assessment/Plan - Atrial flutter/AF with rapid ventricular response. Dr. Fontenot is following in cardiology consultation. - Hypertension - Diabetes mellitus type 2, myoglobin A1c is is 9.1. Continue Lantus and pre- meal NovoLog. - Cardiomyopathy-EF 40% by echo 03/2017 Further recommendations based on clinical course. Plan of care discussed with Dr. Tee. Subjective 24 Hr Interval Summary ENT: no complaints Respiratory: no complaints Cardiovascular: no complaints Gastrointestinal: no complaints Musculoskeletal: no complaints Exam/Review of Systems Vital Signs Vitals Vital Signs Date Time Temp Pulse Resp B/P Pulse Ox O2 Delivery O2 Flow Rate FiO2 06/05/17 12:21 71 06/05/17 11:42 98.6 18 130/67 94 06/02/17 14:27 Room Air Intake and Output 06/04/17 06/04/17 06/05/17 15:00 23:00 07:00 Intake Total 810 ml Balance 810 ml Exam Respiratory: diminished breath sounds, normal air movement Cardiovascular: other (ATRIAL FLUTTER- HR 84) Gastrointestinal: soft Results Result Diagram: 06/05/17 0648 06/05/17 0648 Results 24 hrs Laboratory Tests Test 06/04/17 17:31 06/04/17 22:06 06/05/17 02:09 06/05/17 06:48 Bedside Glucose 96 199 170 White Blood Count 7.3 Red Blood Count 4.47 Hemoglobin 14.3 Hematocrit 42.8 Mean Corpuscular Volume 95.7 Mean Corpuscular Hemoglobin 32.0 Mean Corpuscular Hemoglobin Concent 33.4 Red Cell Distribution Width 12.8 Platelet Count 163 Mean Platelet Volume 12.6 H Neutrophils % 52.6 Lymphocytes % 32.1 Monocytes % 12.0 H Eosinophils % 2.3 Basophils % 0.7 Nucleated Red Blood Cells % 0.0 Neutrophils # 3.9 Lymphocytes # 2.4 Monocytes # 0.9 Eosinophils # 0.2 Basophils # 0.1 Nucleated Red Blood Cells # 0.0 Sodium Level 139 Potassium Level 4.3 Chloride Level 97 Carbon Dioxide Level 32 H Anion Gap 14 Blood Urea Nitrogen 26 H Creatinine 1.08 H Glucose Level 165 Calcium Level 9.4 Test 06/05/17 09:07 06/05/17 12:47 Bedside Glucose 221 H 196 Medications Medications Current Medications Acetaminophen (Tylenol Tab) 650 mg Q6H PRN PO PAIN AND OR ELEVATED TEMP Last administered on 05/31/17 14:15; Admin Dose 650 MG; Start 05/30/17 at 23:00 Ondansetron HCl 4 mg 4 mg Q6H PRN IV NAUSEA AND/OR VOMITING Last administered on 06/04/17 09:07; Admin Dose 4 MG; Start 05/30/17 at 23:00 Diltiazem HCl (Cardizem-D5W 125 Mg/125 ml Drip) 125 ml @ 5 mls/hr TITRATE PRN IV PALPITATION Last administered on 05/31/17 18:26; Admin Dose 5 MLS/HR; Start 05/30/17 at 23:30 Miscellaneous Information 1 ea NOTE XX ; Start 05/30/17 at 23:45 Glucose (Glutose) 15 gm Q15M PRN PO DECREASED GLUCOSE; Start 05/30/17 at 23:45 Glucose (Glutose) 22.5 gm Q15M PRN PO DECREASED GLUCOSE; Start 05/30/17 at 23: 45 Dextrose (D50w Syringe) 25 ml Q15M PRN IV DECREASED GLUCOSE; Start 05/30/17 at 23:45 Dextrose (D50w Syringe) 50 ml Q15M PRN IV DECREASED GLUCOSE; Start 05/30/17 at 23:45 Glucagon (Glucagen) 1 mg Q15M PRN IM DECREASED GLUCOSE; Start 05/30/17 at 23: 45 Glucose (Glutose) 15 gm Q15M PRN BUCCAL DECREASED GLUCOSE; Start 05/30/17 at 23:45 Apixaban (Eliquis) 2.5 mg BID PO Last administered on 06/05/17 09:12; Admin Dose 2.5 MG; Start 05/31/17 at 00:46 Tramadol HCl (Ultram) 50 mg BID PO Last administered on 06/05/17 09:33; Admin Dose 50 MG; Start 05/31/17 at 12:00 Diagnostic Test (Pha) (Accu-Chek) 1 ea 02 XX Last administered on 06/02/17 02 :00; Admin Dose 1 EA; Start 06/01/17 at 02:00 Pantoprazole (Protonix Tab) 40 mg BID@06,18 PO Last administered on 06/05/17 06:38; Admin Dose 40 MG; Start 05/31/17 at 18:00 Phenol (Cepastat Lozenge) 1 lozenge Q1H PRN MT COUGH; Start 05/31/17 at 17:30 Lisinopril (Zestril) 2.5 mg DAILY PO Last administered on 06/05/17 09:12; Admin Dose 2.5 MG; Start 06/02/17 at 09:00 Metoprolol Succinate (Toprol Xl) 50 mg BID PO Last administered on 06/05/17 09:12; Admin Dose 50 MG; Start 06/02/17 at 21:00 Diltiazem HCl (Cardizem Iv) 5 mg Q4 PRN IV PALPITATION Last administered on 09:07; Admin Dose 5 MG; Start 06/02/17 at 18:30 Diltiazem HCl (Cardizem) 30 mg Q8 PO Last administered on 06/05/17 06:38; Admin Dose 30 MG; Start 06/04/17 at 10:00 Insulin Glargine (Lantus) 15 unit DAILY@20 SC Last administered on 06/04/17 22:28; Admin Dose 15 UNIT; Start 06/04/17 at 20:00 JAD GALLOWAY Jun 05, 2017 15:10
[2017-06-05] MEDS: DILTIAZEM 25 MG INJ IV PRN ×2 (16:13→22:44)
[2017-06-05] MEDS: INSULIN GLARGINE [LANtus] 3 ML PEN SC SCH (21:21)
[2017-06-06] VITALS (12 sets, daily range): BP systolic 109–137; BP diastolic 60–90; PULSE 74–84; RESP 17–20
[2017-06-06] MEDS: ACCU-CHEK XX SCH (02:00)
[2017-06-06] MEDS: FUROSEMIDE 20 MG INJ IV SCH ×2 (05:26→17:12)
[2017-06-06] MEDS: PANTOPRAZOLE (EC) 40 MG TAB PO SCH ×2 (05:27→17:12)
[2017-06-06] MEDS: DILTIAZEM 30 MG TAB PO SCH ×3 (05:27→21:39)
[2017-06-06] MEDS: INSULIN ASPART [NOVOLOG] 3 ML PEN SC SCH ×7 (08:05→21:00)
[2017-06-06] MEDS: APIXABAN 5 MG TABLET PO SCH ×2 (08:29→21:38)
[2017-06-06] MEDS: LISINOPRIL 5 MG TAB PO SCH (08:29)
[2017-06-06] MEDS: METOPROLOL (XL) 50 MG TAB PO SCH ×2 (08:30→21:35)
[2017-06-06] MEDS: traMADol 50 MG TAB PO SCH ×2 (08:30→21:35)
[2017-06-06 08:54] LABS: BASOPHILS % 0.5 % (0.0-2.0); EOSINOPHILS # 0.2 10^3/ul (0.0-0.5); EOSINOPHILS % 2.3 % (0.0-7.0); HEMATOCRIT 43.8 % (37.0-47.0); HEMOGLOBIN 14.9 g/dl (12.0-16.0); LYMPHOCYTES # 2.7 10^3/ul (0.8-2.9); LYMPHOCYTES % 35.8 % (15.0-51.0); MEAN CORPUSCULAR HEMOGLOBIN 32.4 pg (29.0-33.0); MEAN CORPUSCULAR VOLUME 95.2 fl (82.0-101.0); MEAN PLATELET VOLUME 12.7 fl (7.4-10.4); MONOCYTE # 0.7 10^3/ul (0.3-0.9); MONOCYTES % 9.9 % (0.0-11.0); NEUTROPHIL # 3.8 10^3/ul (1.6-7.5); NEUTROPHILS % 51.2 % (39.0-77.0); PLATELET COUNT 186 10^3/UL (140-415); RED CELL DISTRIBUTION WIDTH 12.8 % (11.5-14.5); WHITE BLOOD COUNT 7.4 10^3/ul (4.8-10.8)
[2017-06-06 09:16] LABS: CALCIUM 9.2 mg/dl (8.4-10.2); CREATININE 0.98 mg/dl (0.44-1.00); POTASSIUM 4.1 mmol/L (3.5-5.1)
--- NOTE | 2017-06-06 13:53 | CONS ---
Date/Time of Note Date/Time of Note DATE: 06/06/17 TIME: 13:52 Assessment/Plan Assessment/Plan Additional Assessment/Plan 1. Atrial flutter/AF with rapid ventricular response.- now improved HR - IN A. [place] - rate controlled. Outpt evaluation for EPS/ablation advised. 2. Hypertension- better controlled, con't to adjust rx as needed. In good range now. WELL RX. 3. Shortness of breath, assess for congestive heart failure- improved with gentle diuresis. NO CP now. BETTER with therapy. 4. Diabetes mellitus- on meds, keep euglycemic. 5. Suppressed TSH. 6. Cardiomyopathy-EF 40% by echo 03/2017- no indication for ICD. Consultation Date/Type/Reason Admit Date/Time May 30, 2017 at 20:36 Type of Consultation: cardiology Referring Provider: EDDIE MOLINA MD 24 HR Interval Summary Free Text/Dictation NO acute events - stable A. [place] on tele. ROS: No fever, no chills, no nausea, no vomiting, no diarrhea/constipation No recent weight changes No chest pain, no PND, no orthopnea No dizziness, blurred vision No thirst, no heat or cold intolerance Exam/Review of Systems Vital Signs Vitals Vital Signs Date Time Temp Pulse Resp B/P Pulse Ox O2 Delivery O2 Flow Rate FiO2 06/06/17 12:27 74 06/06/17 12:00 98.2 20 109/65 98 Room Air Intake and Output 06/05/17 06/05/17 06/06/17 15:00 23:00 07:00 Intake Total 800 ml 950 ml 900 ml Balance 800 ml 950 ml 900 ml Exam General: WN/WD/NAD, AOx 3 HEENT: Unicetric/atraumatic/EOMI (follow commands) NECK: JVD elevated, no thyromegaly Lymph: no lymphadenopathy HEART: Irregular with no S3, II/ systolic murmur at apex LUNGS: Coarse sounds ABD: soft, NT, ND, +BS : Intact Neuro: non focal SKIN: chronic changes EXT: trace edema Results Result Diagram: 06/06/17 0730 06/06/17 0730 Results 24 hrs Laboratory Tests Test 06/05/17 16:03 06/05/17 20:40 06/06/17 07:30 06/06/17 08:02 Bedside Glucose 77 158 151 White Blood Count 7.4 Red Blood Count 4.60 Hemoglobin 14.9 Hematocrit 43.8 Mean Corpuscular Volume 95.2 Mean Corpuscular Hemoglobin 32.4 Mean Corpuscular Hemoglobin Concent 34.0 Red Cell Distribution Width 12.8 Platelet Count 186 Mean Platelet Volume 12.7 H Neutrophils % 51.2 Lymphocytes % 35.8 Monocytes % 9.9 Eosinophils % 2.3 Basophils % 0.5 Nucleated Red Blood Cells % 0.0 Neutrophils # 3.8 Lymphocytes # 2.7 Monocytes # 0.7 Eosinophils # 0.2 Basophils # 0.0 Nucleated Red Blood Cells # 0.0 Sodium Level 137 Potassium Level 4.1 Chloride Level 92 L Carbon Dioxide Level 33 H Anion Gap 16 Blood Urea Nitrogen 25 H Creatinine 0.98 Glucose Level 166 Calcium Level 9.2 Test 06/06/17 11:47 Bedside Glucose 160 Medications Medications Current Medications Acetaminophen (Tylenol Tab) 650 mg Q6H PRN PO PAIN AND OR ELEVATED TEMP Last administered on 05/31/17 14:15; Admin Dose 650 MG; Start 05/30/17 at 23:00 Ondansetron HCl 4 mg 4 mg Q6H PRN IV NAUSEA AND/OR VOMITING Last administered on 06/04/17 09:07; Admin Dose 4 MG; Start 05/30/17 at 23:00 Diltiazem HCl (Cardizem-D5W 125 Mg/125 ml Drip) 125 ml @ 5 mls/hr TITRATE PRN IV PALPITATION Last administered on 05/31/17 18:26; Admin Dose 5 MLS/HR; Start 05/30/17 at 23:30 Miscellaneous Information 1 ea NOTE XX ; Start 05/30/17 at 23:45 Glucose (Glutose) 15 gm Q15M PRN PO DECREASED GLUCOSE; Start 05/30/17 at 23:45 Glucose (Glutose) 22.5 gm Q15M PRN PO DECREASED GLUCOSE; Start 05/30/17 at 23: 45 Dextrose (D50w Syringe) 25 ml Q15M PRN IV DECREASED GLUCOSE; Start 05/30/17 at 23:45 Dextrose (D50w Syringe) 50 ml Q15M PRN IV DECREASED GLUCOSE; Start 05/30/17 at 23:45 Glucagon (Glucagen) 1 mg Q15M PRN IM DECREASED GLUCOSE; Start 05/30/17 at 23: 45 Glucose (Glutose) 15 gm Q15M PRN BUCCAL DECREASED GLUCOSE; Start 05/30/17 at 23:45 Apixaban (Eliquis) 2.5 mg BID PO Last administered on 06/06/17 08:29; Admin Dose 2.5 MG; Start 05/31/17 at 00:46 Tramadol HCl (Ultram) 50 mg BID PO Last administered on 06/05/17 21:16; Admin Dose 50 MG; Start 05/31/17 at 12:00 Diagnostic Test (Pha) (Accu-Chek) 1 ea 02 XX Last administered on 06/02/17 02 :00; Admin Dose 1 EA; Start 06/01/17 at 02:00 Pantoprazole (Protonix Tab) 40 mg BID@06,18 PO Last administered on 06/06/17 05:27; Admin Dose 40 MG; Start 05/31/17 at 18:00 Phenol (Cepastat Lozenge) 1 lozenge Q1H PRN MT COUGH; Start 05/31/17 at 17:30 Lisinopril (Zestril) 2.5 mg DAILY PO Last administered on 06/06/17 08:29; Admin Dose 2.5 MG; Start 06/02/17 at 09:00 Metoprolol Succinate (Toprol Xl) 50 mg BID PO Last administered on 06/06/17 08:30; Admin Dose 50 MG; Start 06/02/17 at 21:00 Diltiazem HCl (Cardizem Iv) 5 mg Q4 PRN IV PALPITATION Last administered on 22:44; Admin Dose 5 MG; Start 06/02/17 at 18:30 Diltiazem HCl (Cardizem) 30 mg Q8 PO Last administered on 06/06/17 13:15; Admin Dose 30 MG; Start 06/04/17 at 10:00 Insulin Glargine (Lantus) 15 unit DAILY@20 SC Last administered on 06/05/17 21:21; Admin Dose 15 UNIT; Start 06/04/17 at 20:00 CORNEL MORAES MD Jun 06, 2017 13:53
--- NOTE | 2017-06-06 15:53 | PN ---
Date/Time of Note Date/Time of Note DATE: 06/06/17 TIME: 15:51 Assessment/Plan VTE Prophylaxis VTE Prophylaxis Intervention: SCD's Lines/Catheters [facility] ([facility] Urinary Cath still in place: No Assessment/Plan Chief Complaint/Hosp Course Patient had an episode of atrial flutter yesterday during the day, stable heart rate today continue to monitor on telemetry floor Assessment/Plan - Atrial flutter/AF with rapid ventricular response. Last episode less than 24 hours ago, continue telemetry monitoring if remains stable anticipate discharge on current dose of Cardizem and metoprolol. Dr. Dawson is following in cardiology consultation. - Hypertension - Diabetes mellitus type 2, myoglobin A1c is is 9.1. Continue Lantus and pre- meal NovoLog. - Cardiomyopathy-EF 40% by echo 03/2017 Further recommendations based on clinical course. Plan of care discussed with Dr. Tee. Problems: Exam/Review of Systems Vital Signs Vitals Vital Signs Date Time Temp Pulse Resp B/P Pulse Ox O2 Delivery O2 Flow Rate FiO2 06/06/17 12:27 74 06/06/17 12:00 98.2 20 109/65 98 Room Air Intake and Output 06/05/17 06/05/17 06/06/17 15:00 23:00 07:00 Intake Total 800 ml 950 ml 900 ml Balance 800 ml 950 ml 900 ml Exam Constitutional: alert, oriented Head: normocephalic Neck: supple Respiratory: normal air movement Cardiovascular: nl pulses, atrial flutter Gastrointestinal: non-tender, soft Musculoskeletal: nl extremities to inspection Extremities: normal pulses Results Result Diagram: 06/06/17 0730 06/06/17 0730 Results 24 hrs Laboratory Tests Test 06/05/17 16:03 06/05/17 20:40 06/06/17 07:30 06/06/17 08:02 Bedside Glucose 77 158 151 White Blood Count 7.4 Red Blood Count 4.60 Hemoglobin 14.9 Hematocrit 43.8 Mean Corpuscular Volume 95.2 Mean Corpuscular Hemoglobin 32.4 Mean Corpuscular Hemoglobin Concent 34.0 Red Cell Distribution Width 12.8 Platelet Count 186 Mean Platelet Volume 12.7 H Neutrophils % 51.2 Lymphocytes % 35.8 Monocytes % 9.9 Eosinophils % 2.3 Basophils % 0.5 Nucleated Red Blood Cells % 0.0 Neutrophils # 3.8 Lymphocytes # 2.7 Monocytes # 0.7 Eosinophils # 0.2 Basophils # 0.0 Nucleated Red Blood Cells # 0.0 Sodium Level 137 Potassium Level 4.1 Chloride Level 92 L Carbon Dioxide Level 33 H Anion Gap 16 Blood Urea Nitrogen 25 H Creatinine 0.98 Glucose Level 166 Calcium Level 9.2 Test 06/06/17 11:47 Bedside Glucose 160 Medications Medications Current Medications Acetaminophen (Tylenol Tab) 650 mg Q6H PRN PO PAIN AND OR ELEVATED TEMP Last administered on 05/31/17 14:15; Admin Dose 650 MG; Start 05/30/17 at 23:00 Ondansetron HCl 4 mg 4 mg Q6H PRN IV NAUSEA AND/OR VOMITING Last administered on 06/04/17 09:07; Admin Dose 4 MG; Start 05/30/17 at 23:00 Diltiazem HCl (Cardizem-D5W 125 Mg/125 ml Drip) 125 ml @ 5 mls/hr TITRATE PRN IV PALPITATION Last administered on 05/31/17 18:26; Admin Dose 5 MLS/HR; Start 05/30/17 at 23:30 Miscellaneous Information 1 ea NOTE XX ; Start 05/30/17 at 23:45 Glucose (Glutose) 15 gm Q15M PRN PO DECREASED GLUCOSE; Start 05/30/17 at 23:45 Glucose (Glutose) 22.5 gm Q15M PRN PO DECREASED GLUCOSE; Start 05/30/17 at 23: 45 Dextrose (D50w Syringe) 25 ml Q15M PRN IV DECREASED GLUCOSE; Start 05/30/17 at 23:45 Dextrose (D50w Syringe) 50 ml Q15M PRN IV DECREASED GLUCOSE; Start 05/30/17 at 23:45 Glucagon (Glucagen) 1 mg Q15M PRN IM DECREASED GLUCOSE; Start 05/30/17 at 23: 45 Glucose (Glutose) 15 gm Q15M PRN BUCCAL DECREASED GLUCOSE; Start 05/30/17 at 23:45 Apixaban (Eliquis) 2.5 mg BID PO Last administered on 06/06/17 08:29; Admin Dose 2.5 MG; Start 05/31/17 at 00:46 Tramadol HCl (Ultram) 50 mg BID PO Last administered on 06/05/17 21:16; Admin Dose 50 MG; Start 05/31/17 at 12:00 Diagnostic Test (Pha) (Accu-Chek) 1 ea 02 XX Last administered on 06/02/17 02 :00; Admin Dose 1 EA; Start 06/01/17 at 02:00 Pantoprazole (Protonix Tab) 40 mg BID@06,18 PO Last administered on 06/06/17 05:27; Admin Dose 40 MG; Start 05/31/17 at 18:00 Phenol (Cepastat Lozenge) 1 lozenge Q1H PRN MT COUGH; Start 05/31/17 at 17:30 Lisinopril (Zestril) 2.5 mg DAILY PO Last administered on 06/06/17 08:29; Admin Dose 2.5 MG; Start 06/02/17 at 09:00 Metoprolol Succinate (Toprol Xl) 50 mg BID PO Last administered on 06/06/17 08:30; Admin Dose 50 MG; Start 06/02/17 at 21:00 Diltiazem HCl (Cardizem Iv) 5 mg Q4 PRN IV PALPITATION Last administered on 22:44; Admin Dose 5 MG; Start 06/02/17 at 18:30 Diltiazem HCl (Cardizem) 30 mg Q8 PO Last administered on 06/06/17 13:15; Admin Dose 30 MG; Start 06/04/17 at 10:00 Insulin Glargine (Lantus) 15 unit DAILY@20 SC Last administered on 06/05/17 21:21; Admin Dose 15 UNIT; Start 06/04/17 at 20:00 MARILYN LEE Jun 06, 2017 15:53
[2017-06-06] MEDS: INSULIN GLARGINE [LANtus] 3 ML PEN SC SCH (20:26)
[2017-06-06] MEDS: DILTIAZEM 25 MG INJ IV PRN (22:43)
[2017-06-07] VITALS (13 sets, daily range): BP systolic 107–126; BP diastolic 61–77; PULSE 81–150; RESP 16–19
[2017-06-07] MEDS: ACCU-CHEK XX SCH (01:46)
[2017-06-07] MEDS: PANTOPRAZOLE (EC) 40 MG TAB PO SCH ×2 (06:45→17:46)
[2017-06-07] MEDS: FUROSEMIDE 20 MG INJ IV SCH ×2 (06:48→17:46)
[2017-06-07] MEDS: DILTIAZEM 30 MG TAB PO SCH ×3 (06:48→21:27)
[2017-06-07 07:35] LABS: BASOPHILS % 0.5 % (0.0-2.0); EOSINOPHILS # 0.1 10^3/ul (0.0-0.5); EOSINOPHILS % 1.5 % (0.0-7.0); HEMATOCRIT 43.6 % (37.0-47.0); LYMPHOCYTES # 2.3 10^3/ul (0.8-2.9); LYMPHOCYTES % 30.5 % (15.0-51.0); MEAN CORPUSCULAR HEMOGLOBIN 32.3 pg (29.0-33.0); MEAN CORPUSCULAR HGB CONC 34.4 g/dl (32.0-37.0); MEAN CORPUSCULAR VOLUME 93.8 fl (82.0-101.0); MEAN PLATELET VOLUME 12.6 fl (7.4-10.4); MONOCYTE # 0.7 10^3/ul (0.3-0.9); MONOCYTES % 9.8 % (0.0-11.0); NEUTROPHIL # 4.2 10^3/ul (1.6-7.5); NEUTROPHILS % 57.4 % (39.0-77.0); PLATELET COUNT 181 10^3/UL (140-415); RED BLOOD COUNT 4.65 10^6/ul (4.20-5.40); RED CELL DISTRIBUTION WIDTH 12.8 % (11.5-14.5); WHITE BLOOD COUNT 7.4 10^3/ul (4.8-10.8)
[2017-06-07 07:53] LABS: CALCIUM 9.6 mg/dl (8.4-10.2); CREATININE 0.96 mg/dl (0.44-1.00); POTASSIUM 4.3 mmol/L (3.5-5.1)
[2017-06-07] MEDS: INSULIN ASPART [NOVOLOG] 3 ML PEN SC SCH ×7 (08:02→20:28)
[2017-06-07] MEDS: APIXABAN 5 MG TABLET PO SCH ×2 (08:14→20:27)
[2017-06-07] MEDS: LISINOPRIL 5 MG TAB PO SCH (08:14)
[2017-06-07] MEDS: traMADol 50 MG TAB PO SCH ×2 (08:15→21:00)
[2017-06-07] MEDS: METOPROLOL (XL) 50 MG TAB PO SCH ×2 (08:16→20:28)
--- NOTE | 2017-06-07 10:49 | CONS ---
Date/Time of Note Date/Time of Note DATE: 06/07/17 TIME: 10:48 Assessment/Plan Assessment/Plan Additional Assessment/Plan 1. Atrial flutter/AF with rapid ventricular response.- now improved HR - IN A. [place] - rate controlled. Outpt evaluation for EPS/ablation advised. OUTPT. 2. Hypertension- better controlled, con't to adjust rx as needed. In good range now. WELL RX. 3. Shortness of breath, assess for congestive heart failure- improved with gentle diuresis. NO CP now. BETTER with therapy. Improved. 4. Diabetes mellitus- on meds, keep euglycemic. 5. Suppressed TSH. 6. Cardiomyopathy-EF 40% by echo 03/2017- no indication for ICD. Consultation Date/Type/Reason Admit Date/Time May 30, 2017 at 20:36 Type of Consultation: cardiology Referring Provider: EDDIE MOLINA MD 24 HR Interval Summary Free Text/Dictation NO acute change - HR stable in a. fl. ROS: No fever, no chills, no nausea, no vomiting, no diarrhea/constipation No recent weight changes No chest pain, no PND, no orthopnea No dizziness, blurred vision No thirst, no heat or cold intolerance Exam/Review of Systems Vital Signs Vitals Vital Signs Date Time Temp Pulse Resp B/P Pulse Ox O2 Delivery O2 Flow Rate FiO2 06/07/17 08:08 126 06/07/17 07:56 97.7 16 113/76 95 06/06/17 16:00 Room Air Intake and Output 06/06/17 06/06/17 06/07/17 15:00 23:00 07:00 Intake Total 700 ml Balance 700 ml Exam General: WN/WD/NAD, AOx 2-3 better HEENT: Unicetric/atraumatic/EOMI (follow commands) NECK: JVD elevated, no thyromegaly Lymph: no lymphadenopathy HEART: irregular with no S3, II/ systolic murmur at apex LUNGS: Coarse sounds ABD: soft, NT, ND, +BS : Intact Neuro: non focal SKIN: chronic changes EXT: trace edema Results Result Diagram: 06/07/17 0700 06/07/17 0700 Results 24 hrs Laboratory Tests Test 06/06/17 11:47 06/06/17 17:07 06/06/17 17:46 06/06/17 20:19 Bedside Glucose 160 219 240 H 158 Test 06/07/17 07:00 06/07/17 07:58 White Blood Count 7.4 Red Blood Count 4.65 Hemoglobin 15.0 Hematocrit 43.6 Mean Corpuscular Volume 93.8 Mean Corpuscular Hemoglobin 32.3 Mean Corpuscular Hemoglobin Concent 34.4 Red Cell Distribution Width 12.8 Platelet Count 181 Mean Platelet Volume 12.6 H Neutrophils % 57.4 Lymphocytes % 30.5 Monocytes % 9.8 Eosinophils % 1.5 Basophils % 0.5 Nucleated Red Blood Cells % 0.0 Neutrophils # 4.2 Lymphocytes # 2.3 Monocytes # 0.7 Eosinophils # 0.1 Basophils # 0.0 Nucleated Red Blood Cells # 0.0 Sodium Level 138 Potassium Level 4.3 Chloride Level 95 L Carbon Dioxide Level 34 H Anion Gap 13 Blood Urea Nitrogen 26 H Creatinine 0.96 Glucose Level 147 Calcium Level 9.6 Bedside Glucose 167 Medications Medications Current Medications Acetaminophen (Tylenol Tab) 650 mg Q6H PRN PO PAIN AND OR ELEVATED TEMP Last administered on 05/31/17 14:15; Admin Dose 650 MG; Start 05/30/17 at 23:00 Ondansetron HCl 4 mg 4 mg Q6H PRN IV NAUSEA AND/OR VOMITING Last administered on 06/04/17 09:07; Admin Dose 4 MG; Start 05/30/17 at 23:00 Diltiazem HCl (Cardizem-D5W 125 Mg/125 ml Drip) 125 ml @ 5 mls/hr TITRATE PRN IV PALPITATION Last administered on 05/31/17 18:26; Admin Dose 5 MLS/HR; Start 05/30/17 at 23:30 Miscellaneous Information 1 ea NOTE XX ; Start 05/30/17 at 23:45 Glucose (Glutose) 15 gm Q15M PRN PO DECREASED GLUCOSE; Start 05/30/17 at 23:45 Glucose (Glutose) 22.5 gm Q15M PRN PO DECREASED GLUCOSE; Start 05/30/17 at 23: 45 Dextrose (D50w Syringe) 25 ml Q15M PRN IV DECREASED GLUCOSE; Start 05/30/17 at 23:45 Dextrose (D50w Syringe) 50 ml Q15M PRN IV DECREASED GLUCOSE; Start 05/30/17 at 23:45 Glucagon (Glucagen) 1 mg Q15M PRN IM DECREASED GLUCOSE; Start 05/30/17 at 23: 45 Glucose (Glutose) 15 gm Q15M PRN BUCCAL DECREASED GLUCOSE; Start 05/30/17 at 23:45 Apixaban (Eliquis) 2.5 mg BID PO Last administered on 06/07/17 08:14; Admin Dose 2.5 MG; Start 05/31/17 at 00:46 Tramadol HCl (Ultram) 50 mg BID PO Last administered on 06/07/17 08:15; Admin Dose 50 MG; Start 05/31/17 at 12:00 Diagnostic Test (Pha) (Accu-Chek) 1 ea 02 XX Last administered on 06/02/17 02 :00; Admin Dose 1 EA; Start 06/01/17 at 02:00 Pantoprazole (Protonix Tab) 40 mg BID@,18 PO Last administered on 06/07/17 06:45; Admin Dose 40 MG; Start 05/31/17 at 18:00 Phenol (Cepastat Lozenge) 1 lozenge Q1H PRN MT COUGH; Start 05/31/17 at 17:30 Lisinopril (Zestril) 2.5 mg DAILY PO Last administered on 06/07/17 08:14; Admin Dose 2.5 MG; Start 06/02/17 at 09:00 Metoprolol Succinate (Toprol Xl) 50 mg BID PO Last administered on 06/07/17 08:16; Admin Dose 50 MG; Start 06/02/17 at 21:00 Diltiazem HCl (Cardizem Iv) 5 mg Q4 PRN IV PALPITATION Last administered on 22:43; Admin Dose 5 MG; Start 06/02/17 at 18:30 Diltiazem HCl (Cardizem) 30 mg Q8 PO Last administered on 06/07/17 06:48; Admin Dose 30 MG; Start 06/04/17 at 10:00 Insulin Glargine (Lantus) 15 unit DAILY@20 SC Last administered on 06/06/17 20:26; Admin Dose 15 UNIT; Start 06/04/17 at 20:00 CORNEL MORAES MD Jun 07, 2017 10:49
--- NOTE | 2017-06-07 11:26 | PN ---
Date/Time of Note Date/Time of Note DATE: 06/07/17 TIME: 11:25 Assessment/Plan VTE Prophylaxis VTE Prophylaxis Intervention: other Lines/Catheters [facility] Urinary Cath still in place: No Assessment/Plan Chief Complaint/Hosp Course - Atrial flutter/AF with rapid ventricular response. Last episode less than 24 hours ago, continue telemetry monitoring if remains stable anticipate discharge on current dose of Cardizem and metoprolol. Dr. Dawson is following in cardiology consultation. - Hypertension - Diabetes mellitus type 2, myoglobin A1c is is 9.1. Continue Lantus and pre- meal NovoLog. - Cardiomyopathy-EF 40% by echo 03/2017 Problems: Subjective 24 Hr Interval Summary Free Text/Dictation Patient complain of irregular heart beat Exam/Review of Systems Vital Signs Vitals Vital Signs Date Time Temp Pulse Resp B/P Pulse Ox O2 Delivery O2 Flow Rate FiO2 06/07/17 08:08 126 06/07/17 07:56 97.7 16 113/76 95 06/06/17 16:00 Room Air Intake and Output 06/06/17 06/06/17 06/07/17 15:00 23:00 07:00 Intake Total 700 ml Balance 700 ml Exam Constitutional: well developed Head: atraumatic, normocephalic Neck: supple Respiratory: clear to auscultation Cardiovascular: regular rate and rhythm Gastrointestinal: non-tender, soft Extremities: normal pulses Results Result Diagram: 06/07/17 0700 06/07/17 0700 Results 24 hrs Laboratory Tests Test 06/06/17 11:47 06/06/17 17:07 06/06/17 17:46 06/06/17 20:19 Bedside Glucose 160 219 240 H 158 Test 06/07/17 07:00 06/07/17 07:58 White Blood Count 7.4 Red Blood Count 4.65 Hemoglobin 15.0 Hematocrit 43.6 Mean Corpuscular Volume 93.8 Mean Corpuscular Hemoglobin 32.3 Mean Corpuscular Hemoglobin Concent 34.4 Red Cell Distribution Width 12.8 Platelet Count 181 Mean Platelet Volume 12.6 H Neutrophils % 57.4 Lymphocytes % 30.5 Monocytes % 9.8 Eosinophils % 1.5 Basophils % 0.5 Nucleated Red Blood Cells % 0.0 Neutrophils # 4.2 Lymphocytes # 2.3 Monocytes # 0.7 Eosinophils # 0.1 Basophils # 0.0 Nucleated Red Blood Cells # 0.0 Sodium Level 138 Potassium Level 4.3 Chloride Level 95 L Carbon Dioxide Level 34 H Anion Gap 13 Blood Urea Nitrogen 26 H Creatinine 0.96 Glucose Level 147 Calcium Level 9.6 Bedside Glucose 167 Medications Medications Current Medications Acetaminophen (Tylenol Tab) 650 mg Q6H PRN PO PAIN AND OR ELEVATED TEMP Last administered on 05/31/17 14:15; Admin Dose 650 MG; Start 05/30/17 at 23:00 Ondansetron HCl 4 mg 4 mg Q6H PRN IV NAUSEA AND/OR VOMITING Last administered on 06/04/17 09:07; Admin Dose 4 MG; Start 05/30/17 at 23:00 Diltiazem HCl (Cardizem-D5W 125 Mg/125 ml Drip) 125 ml @ 5 mls/hr TITRATE PRN IV PALPITATION Last administered on 05/31/17 18:26; Admin Dose 5 MLS/HR; Start 05/30/17 at 23:30 Miscellaneous Information 1 ea NOTE XX ; Start 05/30/17 at 23:45 Glucose (Glutose) 15 gm Q15M PRN PO DECREASED GLUCOSE; Start 05/30/17 at 23:45 Glucose (Glutose) 22.5 gm Q15M PRN PO DECREASED GLUCOSE; Start 05/30/17 at 23: 45 Dextrose (D50w Syringe) 25 ml Q15M PRN IV DECREASED GLUCOSE; Start 05/30/17 at 23:45 Dextrose (D50w Syringe) 50 ml Q15M PRN IV DECREASED GLUCOSE; Start 05/30/17 at 23:45 Glucagon (Glucagen) 1 mg Q15M PRN IM DECREASED GLUCOSE; Start 05/30/17 at 23: 45 Glucose (Glutose) 15 gm Q15M PRN BUCCAL DECREASED GLUCOSE; Start 05/30/17 at 23:45 Apixaban (Eliquis) 2.5 mg BID PO Last administered on 06/07/17 08:14; Admin Dose 2.5 MG; Start 05/31/17 at 00:46 Tramadol HCl (Ultram) 50 mg BID PO Last administered on 06/07/17 08:15; Admin Dose 50 MG; Start 05/31/17 at 12:00 Diagnostic Test (Pha) (Accu-Chek) 1 ea 02 XX Last administered on 06/02/17 02 :00; Admin Dose 1 EA; Start 06/01/17 at 02:00 Pantoprazole (Protonix Tab) 40 mg BID@06,18 PO Last administered on 06/07/17 06:45; Admin Dose 40 MG; Start 05/31/17 at 18:00 Phenol (Cepastat Lozenge) 1 lozenge Q1H PRN MT COUGH; Start 05/31/17 at 17:30 Lisinopril (Zestril) 2.5 mg DAILY PO Last administered on 06/07/17 08:14; Admin Dose 2.5 MG; Start 06/02/17 at 09:00 Metoprolol Succinate (Toprol Xl) 50 mg BID PO Last administered on 06/07/17 08:16; Admin Dose 50 MG; Start 06/02/17 at 21:00 Diltiazem HCl (Cardizem Iv) 5 mg Q4 PRN IV PALPITATION Last administered on 22:43; Admin Dose 5 MG; Start 06/02/17 at 18:30 Diltiazem HCl (Cardizem) 30 mg Q8 PO Last administered on 06/07/17 06:48; Admin Dose 30 MG; Start 06/04/17 at 10:00 Insulin Glargine (Lantus) 15 unit DAILY@20 SC Last administered on 06/06/17 20:26; Admin Dose 15 UNIT; Start 06/04/17 at 20:00 ANGELO RAY Jun 07, 2017 11:26
[2017-06-07] MEDS: INSULIN GLARGINE [LANtus] 3 ML PEN SC SCH (20:41)
[2017-06-07] MEDS: DILTIAZEM 25 MG INJ IV PRN (22:36)
[2017-06-08] VITALS (7 sets, daily range): BP systolic 111–134; BP diastolic 60–70; PULSE 72–93; RESP 17–18
[2017-06-08] MEDS: DILTIAZEM 25 MG INJ IV PRN (02:00)
[2017-06-08] MEDS: ACCU-CHEK XX SCH (02:03)
[2017-06-08] MEDS: DILTIAZEM 30 MG TAB PO SCH (06:25)
[2017-06-08] MEDS: PANTOPRAZOLE (EC) 40 MG TAB PO SCH (06:25)
[2017-06-08] MEDS: FUROSEMIDE 20 MG INJ IV SCH (06:25)
[2017-06-08] MEDS: INSULIN ASPART [NOVOLOG] 3 ML PEN SC SCH ×2 (07:55→08:11)
[2017-06-08] MEDS: APIXABAN 5 MG TABLET PO SCH (08:19)
[2017-06-08] MEDS: LISINOPRIL 5 MG TAB PO SCH (08:20)
[2017-06-08] MEDS: METOPROLOL (XL) 50 MG TAB PO SCH (08:21)
[2017-06-08] MEDS: traMADol 50 MG TAB PO SCH (08:22)
--- NOTE | 2017-06-08 10:25 | CONS ---
Date/Time of Note Date/Time of Note DATE: 06/08/17 TIME: 10:23 Assessment/Plan Assessment/Plan Additional Assessment/Plan 1. Atrial flutter/AF with rapid ventricular response.- now improved HR - IN A. [place] - rate controlled. Outpt evaluation for EPS/ablation advised. OUTPT. RATE CONTROLLED. 2. Hypertension- better controlled, con't to adjust rx as needed. In good range now. WELL RX. 3. Shortness of breath - better now, con't to adjust Rx. EF 40% - better fluidstaus now. 4. Diabetes mellitus- on meds, keep euglycemic. 5. Suppressed TSH. 6. Cardiomyopathy-EF 40% by echo 03/2017- no indication for ICD. Consultation Date/Type/Reason Admit Date/Time May 30, 2017 at 20:36 Type of Consultation: cardiology Referring Provider: EDDIE MOLINA MD 24 HR Interval Summary Free Text/Dictation NO acute events - HR controlled in a. fl - med rx now - outpt EP eval for ablation. ROS: No fever, no chills, no nausea, no vomiting, no diarrhea/constipation No recent weight changes No chest pain, no PND, no orthopnea No dizziness, blurred vision No thirst, no heat or cold intolerance Exam/Review of Systems Vital Signs Vitals Vital Signs Date Time Temp Pulse Resp B/P Pulse Ox O2 Delivery O2 Flow Rate FiO2 06/08/17 08:27 97.5 89 17 134/70 94 06/06/17 16:00 Room Air Intake and Output 06/07/17 06/07/17 06/08/17 15:00 23:00 07:00 Intake Total 800 ml 250 ml Balance 800 ml 250 ml Exam General: WN/WD/NAD, AOx 3 HEENT: Unicetric/atraumatic/EOMI (follow commands) NECK: JVD elevated, no thyromegaly Lymph: no lymphadenopathy HEART: regular with no S3, II/ systolic murmur at apex LUNGS: Coarse sounds ABD: soft, NT, ND, +BS : Intact Neuro: non focal SKIN: chronic changes EXT: trace edema Results Result Diagram: 06/07/17 0700 06/07/17 0700 Results 24 hrs Laboratory Tests Test 06/07/17 11:57 06/07/17 17:38 06/07/17 20:25 06/08/17 01:52 Bedside Glucose 167 114 167 127 Test 06/08/17 08:05 Bedside Glucose 140 Medications Medications Current Medications Acetaminophen (Tylenol Tab) 650 mg Q6H PRN PO PAIN AND OR ELEVATED TEMP Last administered on 05/31/17 14:15; Admin Dose 650 MG; Start 05/30/17 at 23:00 Ondansetron HCl 4 mg 4 mg Q6H PRN IV NAUSEA AND/OR VOMITING Last administered on 06/04/17 09:07; Admin Dose 4 MG; Start 05/30/17 at 23:00 Diltiazem HCl (Cardizem-D5W 125 Mg/125 ml Drip) 125 ml @ 5 mls/hr TITRATE PRN IV PALPITATION Last administered on 05/31/17 18:26; Admin Dose 5 MLS/HR; Start 05/30/17 at 23:30 Miscellaneous Information 1 ea NOTE XX ; Start 05/30/17 at 23:45 Glucose (Glutose) 15 gm Q15M PRN PO DECREASED GLUCOSE; Start 05/30/17 at 23:45 Glucose (Glutose) 22.5 gm Q15M PRN PO DECREASED GLUCOSE; Start 05/30/17 at 23: 45 Dextrose (D50w Syringe) 25 ml Q15M PRN IV DECREASED GLUCOSE; Start 05/30/17 at 23:45 Dextrose (D50w Syringe) 50 ml Q15M PRN IV DECREASED GLUCOSE; Start 05/30/17 at 23:45 Glucagon (Glucagen) 1 mg Q15M PRN IM DECREASED GLUCOSE; Start 05/30/17 at 23: 45 Glucose (Glutose) 15 gm Q15M PRN BUCCAL DECREASED GLUCOSE; Start 05/30/17 at 23:45 Apixaban (Eliquis) 2.5 mg BID PO Last administered on 06/08/17 08:19; Admin Dose 2.5 MG; Start 05/31/17 at 00:46 Tramadol HCl (Ultram) 50 mg BID PO Last administered on 06/08/17 08:22; Admin Dose 50 MG; Start 05/31/17 at 12:00 Diagnostic Test (Pha) (Accu-Chek) 1 ea 02 XX Last administered on 06/08/17 02 :03; Admin Dose 1 EA; Start 06/01/17 at 02:00 Pantoprazole (Protonix Tab) 40 mg BID@06,18 PO Last administered on 06/08/17 06:25; Admin Dose 40 MG; Start 05/31/17 at 18:00 Phenol (Cepastat Lozenge) 1 lozenge Q1H PRN MT COUGH; Start 05/31/17 at 17:30 Lisinopril (Zestril) 2.5 mg DAILY PO Last administered on 06/08/17 08:20; Admin Dose 2.5 MG; Start 06/02/17 at 09:00 Metoprolol Succinate (Toprol Xl) 50 mg BID PO Last administered on 06/08/17 08:21; Admin Dose 50 MG; Start 06/02/17 at 21:00 Diltiazem HCl (Cardizem Iv) 5 mg Q4 PRN IV PALPITATION Last administered on 02:00; Admin Dose 5 MG; Start 06/02/17 at 18:30 Diltiazem HCl (Cardizem) 30 mg Q8 PO Last administered on 06/08/17 06:25; Admin Dose 30 MG; Start 06/04/17 at 10:00 Insulin Glargine (Lantus) 15 unit DAILY@20 SC Last administered on 06/07/17 20:41; Admin Dose 15 UNIT; Start 06/04/17 at 20:00 CORNEL MORAES MD Jun 08, 2017 10:25
--- NOTE | 2017-06-08 11:07 | DS ---
Date/Time of Note Date/Time of Note DATE: 06/08/17 TIME: 11:05 Discharge Summary Admission/Discharge Info Admit Date/Time May 30, 2017 at 20:36 Discharge Date/Time 06/08/17 Consults Cardiology Procedures none Hx of Present Illness Patient with hypertension, coronary artery disease, diabetes come in with atrial fibrillation. Hospital Course Patient was found to have atrial flutter with rapid ventricular response. Patient was treated and she returned to sinus rhythm. Patient was evaluated by cardiology and was found to be stable for discharge. - Atrial flutter/AF with rapid ventricular response. Last episode less than 24 hours ago, continue telemetry monitoring if remains stable anticipate discharge on current dose of Cardizem and metoprolol. Dr. Dawson is following in cardiology consultation. - Hypertension - Diabetes mellitus type 2, myoglobin A1c is is 9.1. Continue Lantus and pre- meal NovoLog. - Cardiomyopathy-EF 40% by echo 03/2017 Home Meds Active Scripts Apixaban* (Eliquis*) 2.5 Mg Tablet, 2.5 MG PO BID, #60 TAB 2 Refills Prov:MCKENNA RODRIGUES 03/16/17 Atenolol* (Atenolol*) 50 Mg Tablet, 50 MG PO BID, #60 TAB 1 Refill Prov:MCKENNA RODRIGUES 03/16/17 Reported Medications Insulin Lispro (Humalog Kwikpen U-100) 100 Unit/1 Ml Insuln.pen, 0 SQ SLIDING SCALE 03/13/17 Insulin Glargine* (Lantus*) 100 Unit/Ml Soln, 7 UNIT SC QHS, #1 VIAL TAKE 10-15 UNITS QHS 03/13/17 Omeprazole* (Omeprazole*) 20 Mg Capsule., 20 MG PO DAILY, #30 CAP 03/13/17 Amlodipine Besylate* (Norvasc*) 5 Mg Tablet, 5 MG PO DAILY, TAB 12/14/14 Hydrochlorothiazide (Hydrochlorothiazide) 25 Mg Tablet, 25 MG PO DAILY, TAB 12/14/14 Primary Care Provider Sam Busby MD Pending Labs Laboratory Tests Test 06/07/17 11:57 06/07/17 17:38 06/07/17 20:25 06/08/17 01:52 Bedside Glucose 167mg/dL (70-220) 114mg/dL (70-220) 167mg/dL (70-220) 127mg/dL (70-220) Test 06/08/17 08:05 Bedside Glucose 140mg/dL (70-220) ANGELO RAY Jun 08, 2017 11:07
== END 2017-06-08 13:45 | disposition home or self-care (01) | DRG 308 ==
LOC: E/R 17:21 → TEL 20:36
PROVIDERS: ADMIT Internal Medicine; ATTEND Internal Medicine
DX: I48.92 Unspecified atrial flutter (principal); I50.23 Acute on chronic systolic (congestive) heart failure; I42.9 Cardiomyopathy, unspecified; E11.65 Type 2 diabetes mellitus with hyperglycemia; I10 Essential (primary) hypertension; I25.10 Atherosclerotic heart disease of native coronary artery without angina pectoris; E11.9 Type 2 diabetes mellitus without complications; Z79.4 Long term (current) use of insulin; K21.9 Gastro-esophageal reflux disease without esophagitis; I48.91 Unspecified atrial fibrillation
CPT/HCPCS: 36415; 71010; 71020; 80048; 82962; 83036; 83880; 84443; 84484; 85025; 93005; 96374; 96375; J1940; J1815; J2405; J7040